=== PATIENT | male | born 1960 | race Caucasian/White ===

== ENCOUNTER 2019-09-21 23:37 | Emergency (ER) | payer OTHER, SELFPAY ==
[2019-09-21 23:42] VITALS: BP 144/98; PULSE 109; RESP 18; O2SAT 97; BMI 21.4
--- NOTE | 2019-09-21 23:51 | XRR_ITS ---
PROCEDURE INFORMATION: Exam: XR Chest, 1 View Exam date and time: 09/22/2019 12:19 AM Age: 58 years old Clinical indication: Shortness of breath; Chest pain; Type not specified; Additional info: Cp TECHNIQUE: Imaging protocol: XR of the chest Views: 1 view. COMPARISON: CR Chest 1 [place] [id number] 04/02/2017 10:20 AM FINDINGS: Lungs: Unremarkable. No consolidation. Pleural space: Unremarkable. No pleural effusion. No pneumothorax. Heart/Mediastinum: Unremarkable. No cardiomegaly. Bones/joints: Unremarkable. XR/XR chest 1V portable [id number] IMPRESSION: Bibasilar atelectasis versus minimal infiltrate.
--- NOTE | 2019-09-21 23:51 | ECG_ITS ---
Measurements Intervals [place] Rate: 140 P: ID: 0 QRS: 50 QRSD: 105 T: 58 QT: 289 QTc: 441 ATRIAL FIBRILLATION WITH RAPID VENTRICULAR RESPONSE NONSPECIFIC ST & T-WAVE ABNORMALITY ABNORMAL RHYTHM ECG Compared to ECG 04/02/2017 13:07:04 T-wave abnormality now present Electronically Signed On 09-22-2019 11:28:43 [employer]ED [employer] SPOT [employer]ER by Leland Ignacio M.D. [id number]
[2019-09-22] VITALS (13 sets, daily range): BP systolic 100–108; BP diastolic 63–81; PULSE 84–114; RESP 15–27; TEMP 36.6; O2SAT 94–97
--- NOTE | 2019-09-22 00:02 | W.ED.CHESTPA ---
HPI - Chest Pain General: Chief Complaint: Chest Pain Stated Complaint: cp Time Seen by Provider: 09/21/19 23:51 History of Present Illness: HPI narrative: Patient woke up with tightness and chest pain after eating supper this evening while sitting in chair. Patient make sure he took his medicine. Pain did not go away and he does have some tightness in the middle of the chest right now. Does have a history of reflux, AGillian burgos MD complaint: chest pain and chest discomfort Onset (ago): hour(s) Timing of current episode: episodic Prior episodes: Yes Onset: during rest and awoke with symptoms Pain location: substernal Pain radiation: none Quality: tightness, aching and heaviness Relieving factors: nothing Exacerbating factors: nothing Associated symptoms: Reports palpitations; Deny abdominal pain, dyspnea, fever(s), nausea or vomiting Review of Systems Narrative: Patient does drink a pot of coffee a day. Usually is good about taking his medications as prescribed. 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 Const: Denies: fever, chills or body aches Eyes: Denies: change in vision or blurry vision ENMT: Denies: throat pain or nasal congestion Card: Reports: chest pain, palpitations and irregular heart rhythm; Denies: shortness of breath on exertion Resp: Denies: shortness of breath, productive cough or non-productive cough GI: Denies: abdominal pain, nausea or vomiting : Denies: difficulty urinating Musc: Denies: extremity pain Skin/Breast: Denies: rash Neuro: Denies: headache Psych: Denies: anxiety or depression Pillo/Lymph: Denies: easy bruising PFSH ED PFSH: Statuses (acute, chronic, etc) shown below reflect problem list status as previously entered and may not be historically accurate Social History Smoking and tobacco status: current every day smoker Physical Exam Const: COMMON NORMALS: no apparent distress, average body habitus and oriented x3 HENMT: COMMON NORMALS: normocephalic HEAD & SCALP: normal to inspection and normocephalic FACE & SINUS: normal facial exam Eye: COMMON NORMALS: conjunctivae normal GENERAL EYE: normal appearance of both eyes CONJUNCTIVA: Yes conjunctivae normal Neck/C-Spine: COMMON NORMALS: no JVD Chest: COMMONS NORMALS: inspection of chest normal Resp: COMMON NORMALS: normal respiratory effort and clear to auscultation bilaterally AUSCULTATION: clear to auscultation bilaterally Cardio: COMMON NORMALS: no JVD, regular rate and regular rhythm RATE: regular rate RHYTHM: regular rhythm GI: COMMON NORMALS: normal to inspection, nondistended, normoactive bowel sounds Extremity: COMMON NORMALS: normal to inspection and full ROM Neuro: COMMON NORMALS: oriented x3 Course Vital Signs: Vital signs: Vital Signs Temperature 97.9 F 09/22/19 00:38 Pulse Rate 87 09/22/19 01:30 Respiratory Rate 19 H 09/22/19 01:30 Blood Pressure 107/68 09/22/19 01:30 Pulse Oximetry 95 09/22/19 01:30 MDM - Chest Pain MDM Narrative: Medical decision making narrative: Dr. Mao and I discussed patient's prognosis medication usage and treatment plan. Lab Data: Labs: Lab Results 09/21/19 09/21/19 09/21/19 Range/Units 00:58 00:58 00:58 WBC 7.0 (4.0-10.0) 10^3/ uL RBC 4.95 (4.1-5.3) 10^6/u L Hgb 14.8 (11.7-16.6) g/dL Hct 43.7 (42.0-52.0) % MCV 88.3 (80-94) fL MCH 29.9 (28.0-34.0) pg MCHC 33.9 (30.0-36.0) g/dL RDW 14.1 (12.1-15.1) % Plt Count 238 (130-400) 10^3/c mm MPV 9.3 (7.4-10.4) fL Neut % (Auto) 50.7 % Lymph % (Auto) 32.7 % [place] % (Auto) 11.5 % Eos % (Auto) 3.9 % Baso % (Auto) 0.9 % Neut # (Auto) 3.5 (1.8-7.7) 10^3/u L Lymph # (Auto) 2.3 (0.8-4.8) 10^3/u L [place] # (Auto) 0.8 (0.2-0.9) 10^3/u L Eos # (Auto) 0.3 (0.0-0.8) 10^3/u L Baso # (Auto) 0.1 (0.0-0.1) 10^3/u L Nucleated RBC % (a uto) 0 % Nucleated RBCs # 0.0 /100WBC PT 12.50 (10.5-13.3) SECO NDS INR 0.91 (0.8-1.2) APTT 28.8 (23.9-36.7) SECO NDS Sodium 136 (136-145) mmol/L Potassium 4.1 (3.5-5.1) mmol/L Chloride 100 (98-107) mmol/L Carbon Dioxide 22 (22-29) mmol/L Anion Gap 18.1 (5-19) BUN 13 (6-20) mg/dL Creatinine 0.7 (0.7-1.2) mg/dL GFR Calculation 115.8 (90-130) mL/min Glucose 113 H (74-109) mg/dL Calcium 9.5 (8.6-10.0) mg/Dl Total Bilirubin 0.2 (0.15-1.2) mg/dL AST 25 (0-40) U/L ALT 31 (0-41) U/L Alkaline Phosphata se 68 (40-130) IU/L Troponin T Baselin e (0-15) ng/mL NT-Pro-B Natriuret Pep 24 (0-125) pg/mL Total Protein 6.6 (6.6-8.7) g/dL Albumin 4.6 (3.5-5.2) g/dL Globulin 2.0 (1.3-4.6) g/dL Lipase 37 (13-60) U/L 09/21/19 Range/Units 00:58 WBC (4.0-10.0) 10^3/ uL RBC (4.1-5.3) 10^6/u L Hgb (11.7-16.6) g/dL Hct (42.0-52.0) % MCV (80-94) fL MCH (28.0-34.0) pg MCHC (30.0-36.0) g/dL RDW (12.1-15.1) % Plt Count (130-400) 10^3/c mm MPV (7.4-10.4) fL Neut % (Auto) % Lymph % (Auto) % [place] % (Auto) % Eos % (Auto) % Baso % (Auto) % Neut # (Auto) (1.8-7.7) 10^3/u L Lymph # (Auto) (0.8-4.8) 10^3/u L [place] # (Auto) (0.2-0.9) 10^3/u L Eos # (Auto) (0.0-0.8) 10^3/u L Baso # (Auto) (0.0-0.1) 10^3/u L Nucleated RBC % (a uto) % Nucleated RBCs # /100WBC PT (10.5-13.3) SECO NDS INR (0.8-1.2) APTT (23.9-36.7) SECO NDS Sodium (136-145) mmol/L Potassium (3.5-5.1) mmol/L Chloride (98-107) mmol/L Carbon Dioxide (22-29) mmol/L Anion Gap (5-19) BUN (6-20) mg/dL Creatinine (0.7-1.2) mg/dL GFR Calculation (90-130) mL/min Glucose (74-109) mg/dL Calcium (8.6-10.0) mg/Dl Total Bilirubin (0.15-1.2) mg/dL AST (0-40) U/L ALT (0-41) U/L Alkaline Phosphata se (40-130) IU/L Troponin T Baselin e 9 (0-15) ng/mL NT-Pro-B Natriuret Pep (0-125) pg/mL Total Protein (6.6-8.7) g/dL Albumin (3.5-5.2) g/dL Globulin (1.3-4.6) g/dL Lipase (13-60) U/L EKG Data^: EKG 1: EKG interpretation date: 09/22/19 EKG interpretation time: 00:01 Interpretation: A. fib with RVR. [address] Yancey. Discharge Plan Discharge Patient Disposition: Home, Self-Care Clinical Impression: Chronic atrial fibrillation Condition: Stable Prescriptions: No Action lovastatin RF: 0 Aspirin Low Dose 81 mg 81 mg PO RF: 0 Discharge Orders: Discharge Order (Routine); Ordered 09/22/19 Ordered By: Troy Ramos Referrals: Ann-Marie Bartlett MD [Family Provider] - Discharge Diet: Usual diet Discharge Activity: Increase activity as tolerated Patient Instructions: Atrial Fibrillation (ED) Activity Restrictions/Additional Instructions: Follow-up with medical provider as directed. Take medications as prescribed. Return to the ER or your medical provider if condition worsens. Please read and understand discharge instructions. If any questions ask please. Cut back on coffee consumption please 2 cups maximum daily. Take rate control medicine when you get home from the ER this morning. Follow-up with Dr. Montoya as soon as possible. Coding Level of Care Code ED Certified Shorthand Reporter for Chg Fwd Exam Problem Focused
[2019-09-22 00:10] LABS: Basophils # 0.1 10^3/uL (0.0-0.1); Basophils % 0.9 %; Eosinophils # 0.3 10^3/uL (0.0-0.8); Eosinophils % 3.9 %; Hematocrit 43.7 % (42.0-52.0); Hemoglobin 14.8 g/dL (11.7-16.6); Lymphocytes # 2.3 10^3/uL (0.8-4.8); Lymphocytes % 32.7 %; Mean Corpuscular HGB Conc 33.9 g/dL (30.0-36.0); Mean Corpuscular Hemoglobin 29.9 pg (28.0-34.0); Mean Corpuscular Volume 88.3 fL (80-94); Mean Platelet Volume 9.3 fL (7.4-10.4); Monocytes # 0.8 10^3/uL (0.2-0.9); Monocytes % 11.5 %; Neutrophils # 3.5 10^3/uL (1.8-7.7); Neutrophils % 50.7 %; Nucleated Red Blood Cells % 0 %; Platelet Count 238 10^3/cmm (130-400); Red Blood Count 4.95 10^6/uL (4.1-5.3); Red Cell Distribution Width 14.1 % (12.1-15.1)
[2019-09-22 00:23] LABS: INR 0.91 (0.8-1.2)
[2019-09-22 00:25] LABS: Partial Thromboplastin Time 28.8 SECONDS (23.9-36.7)
[2019-09-22 00:31] LABS: Troponin(5th) Baseline 9 ng/mL (0-15)
[2019-09-22 00:38] LABS: Alanine Aminotransferase 31 U/L (0-41); Albumin Level 4.6 g/dL (3.5-5.2); Alkaline Phosphatase 68 IU/L (40-130); Anion Gap 18.1 (5-19); Aspartate Amino Transferase 25 U/L (0-40); Blood Urea Nitrogen 13 mg/dL (6-20); Calcium 9.5 mg/Dl (8.6-10.0); Carbon Dioxide 22 mmol/L (22-29); Chloride 100 mmol/L (98-107); Glomerular Filtration Rate 115.8 mL/min (90-130); Glucose 113 mg/dL (74-109); Lipase 37 U/L (13-60); NT Pro B Type Natriuretic Pept 24 pg/mL (0-125); Potassium 4.1 mmol/L (3.5-5.1); Sodium 136 mmol/L (136-145); Total Bilirubin 0.2 mg/dL (0.15-1.2); Total Protein 6.6 g/dL (6.6-8.7)
--- NOTE | 2019-09-22 00:45 | PC.NURSE ---
pt reports waking up with headache then began feeling some pressure in his chest. denies pain. just the pressure only rated 8/10. admits to drinking 4-5 beers this evening but denies other drug use. reports being at +smoker
--- NOTE | 2019-09-22 01:00 | PC.NURSE ---
0100 card drip increased to 10ml/hr then 20mg bolus given at 0105
--- NOTE | 2019-09-22 01:39 | PC.NURSE ---
sitting up on edge of bed refuses to lay back in bed
--- NOTE | 2019-09-22 01:51 | ECG_ITS ---
Measurements Intervals [place] Rate: 140 P: MO: 0 QRS: 50 QRSD: 105 T: 58 QT: 289 QTc: 441 ATRIAL FIBRILLATION WITH RAPID VENTRICULAR RESPONSE NONSPECIFIC ST & T-WAVE ABNORMALITY ABNORMAL RHYTHM ECG Compared to ECG 04/02/2017 13:07:04 T-wave abnormality now present Electronically Signed On 09-22-2019 11:32:36 CURATOR OF COLLECTIONS by Leland Ignacio M.D. [id number] f
--- NOTE | 2019-09-24 11:17 | DCPLANNER ---
receiving manager had message to schedule a follow up appointment for patient with [facility]. receiving manager called [facility], spoke with Perri, a follow up appointment is scheduled for , October 25, 2019 at 10:[address] Montoya. Clinic will call patient with appointment information.
--- NOTE | 2019-11-14 15:55 | DCPLANNER ---
Patient did not attend appointment scheduled for 10.25.19 with [facility].
== END 2019-09-22 02:19 | disposition home or self-care (01) ==
PROVIDERS: Nurse Practitioner Family; Emergency Provider Emergency Medicine; Family Provider Family Medicine
DX: I48.20 Chronic atrial fibrillation, unspecified (principal); Z79.82 Long term (current) use of aspirin; F17.210 Nicotine dependence, cigarettes, uncomplicated
CPT/HCPCS: 71045; 80053; 83690; 83880; 84484; 85025; 85610; 85730; 93005; 96365; 96374; 99282; A9270; J3490

== ENCOUNTER 2019-11-03 22:54 | Emergency (ER) | payer OTHER, SELFPAY ==
[2019-11-03 23:20] VITALS: BP 133/99; PULSE 70; RESP 22; TEMP 36.4; O2SAT 98; BMI 31.0
--- NOTE | 2019-11-03 23:43 | ED_ITS ---
Entered by Rosie Robles, acting as scribe for Drew Slater DO Nov 03, 2019 22:54 HPI - Wound/Laceration General: Chief Complaint: Wound/Laceration Stated Complaint: fall Time Seen by Provider: 11/03/19 23:42 Source: patient and family Mode of arrival: ambulatory Limitations: no limitations History of Present Illness: HPI narrative: 58 yo male presents with laceration to L eye brow post fall in his shop at home. pt states he was walking tripped and fell causing laceration and abrasion to nose. pt denies any other symptoms at this time. pt smells of alcohol. 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) Location: face (L eye brow) and other (neck) Place: home Context: fall (hit face) Associated symptoms: Reports no associated symptoms; Denies chills, fever(s), nausea or vomiting Review of Systems General: Reports: 10 or more systems reviewed and unremarkable except in HPI and below Const: Denies: fever or chills Eyes: Denies: change in vision or blurry vision ENMT: Denies: painful swallowing, swelling of lips/tongue, dental pain, Change in hearing, nose bleeds, post nasal drip or facial/sinus pain Card: Denies: chest pain, palpitations, irregular heart rhythm, edema, swelling of feet/ankles, shortness of breath on exertion or shortness of breath when lying down Resp: Denies: shortness of breath, productive cough, non-productive cough or wheezing GI: Denies: abdominal pain, nausea, vomiting, blood in stool or black tarry stool : Denies: difficulty urinating, urinary urgency or blood in urine Musc: Denies: neck pain, back pain, redness or joint warmth Skin/Breast: Reports: other (laceration to L eye brow and nose) Neuro: Denies: headache, dizziness or vertigo Psych: Denies: anxiety PFSH ED PFSH: Social History Smoking and tobacco status: current every day smoker Physical Exam Const: GENERAL APPEARANCE: well developed ORIENTATION/CONSCIOUSNESS: Yes oriented to person, Yes oriented to place and Yes oriented to time HENMT: COMMON NORMALS: external ears normal and external nose normal FACE & SINUS: normal facial exam NOSE: external nose normal EXTERNAL EAR: Yes external ears normal MOUTH: tongue normal THROAT: posterior oropharynx normal; no peritonsillar mass Eye: COMMON NORMALS: PERRL, EOMs intact bilaterally and conjunctivae normal EYELID: eyelids normal CONJUNCTIVA: Yes conjunctivae normal PUPIL: Yes PERRL Neck/C-Spine: COMMON NORMALS: full ROM GENERAL: No tracheal deviation CERVICAL SPINE: Yes normal cervical lordosis and No cervical spine tenderness Chest: COMMONS NORMALS: inspection of chest normal CHEST: No tenderness Resp: COMMON NORMALS: clear to auscultation bilaterally EFFORT & INSPECTION: No tachypneic, No respiratory distress, No retractions, No uses accessory muscles and No tracheal deviation AUSCULTATION: clear to auscultation bilaterally, no rhonchi, no wheezes and lung sounds not diminished Cardio: COMMON NORMALS: regular rate and regular rhythm RATE: regular rate RHYTHM: regular rhythm HEART SOUNDS: no murmurs PERIPHERAL PULSES: radial pulses present GI: INSPECTION: No abdominal distension AUSCULTATION: No hyperactive bowel sounds and No hypoactive bowel sounds PALPATION: No guarding and No rigid PERCUSSION: no dullness to percussion and no tympanic to percussion : COMMON NORMALS: Yes no CVA tenderness BLADDER/KIDNEY EXAM: Yes no CVA tenderness Back/Pelvis: COMMON NORMALS: no CVA tenderness Neuro: SENSORIUM/ORIENTATION: Yes oriented to person, Yes oriented to place and Yes oriented to time Psych: COMMON NORMALS: mental status grossly normal Skin: WOUNDS: Yes wounds noted (L eye brow laceration, small abrasion on bridge of nose. ) WOUNDS: Yes wounds noted (L eye brow laceration, small abrasion on bridge of nose. ) Procedures Laceration Laceration 1: Side (If applicable): left Size (cm): 3.5 Description: stellate Depth: simple, single layer Local Anesthetic: lidocaine 1% Pre-repair: wound explored, irrigated extensively and deep structures intact Skin layer closed with: nylon Size (cm): 3-0 Number of sutures: 10 Technique: simple, interrupted Size: 4-0 Course Vital Signs: Vital signs: Vital Signs Temperature 97.5 F L 11/03/19 23:20 Pulse Rate 70 11/03/19 23:20 Respiratory Rate 22 H 11/03/19 23:20 Blood Pressure 133/99 11/03/19 23:20 Pulse Oximetry 98 02/29/20 23:20 MDM - Wound/Laceration MDM Narrative: Medical decision making narrative: 58-year-old male, who fell in his shop. He sustained a laceration around his left eyebrow. He is also intoxicated, and therefore cannot be cleared. CT is negative for head and cervical spine. Laceration is repaired by EMELYN Medina. Discharge Plan Discharge Patient Disposition: Home, Self-Care Clinical Impression: Laceration Concussion Qualifiers: Encounter type: initial encounter Loss of consciousness presence/duration: without LOC Qualified Code(s): S06.0X0A - Concussion without loss of consciousness, initial encounter Condition: Stable Prescriptions: No Action famotidine 20 mg tablet 20 mg PO DAILY RF: 0 lisinopril 20 mg tablet 20 mg PO DAILY RF: 0 flecainide 100 mg tablet 100 mg PO Q12H RF: 0 diltiazem HCl 30 mg tablet 30 mg PO TID RF: 0 lovastatin 20 mg tablet 40 mg PO DAILY RF: 0 doxycycline hyclate 100 mg capsule 100 mg PO BID 7 Days Qty: 14 RF: 0 lovastatin RF: 0 Aspirin Low Dose 81 mg 81 mg PO RF: 0 Discharge Orders: Discharge Order (Routine); Ordered 11/04/19 Ordered By: Drew Slater Referrals: Ann-Marie Bartlett MD [Family Provider] - Discharge Diet: Usual diet Discharge Activity: Increase activity as tolerated Patient Instructions: Suture Care (ED), Laceration (ED), Concussion (ED) Activity Restrictions/Additional Instructions: Keep wound clean and dry for 24 hours, then may wash with soap and running water. Do not soak. Sutures out in 5 to 10 days. Return for worsening mental status, vomiting, other concerning symptoms. Discharge Date/Time: 11/04/19 01:27 Coding Level of Care Code ED Chemical Pathologist for Chg Fwd Exam Comprehensive The documentation recorded by the Travis dumont Bridget Annette, accurately reflects the service I personally performed and the decisions made by Bryon thakkar Jeremy John, DO Nov 03, 2019 22:54
--- NOTE | 2019-11-03 23:49 | CTR_ITS ---
PROCEDURE INFORMATION: Exam: CT Head Without Contrast Exam date and time: 11/03/2019 12:00 AM Age: 58 years old Clinical indication: Injury or trauma; Fall; Initial encounter; Blunt trauma (contusions or hematomas) and laceration; Consciousness not specified; Without residual foreign body; Patient HX: Fell out of chair onto concrete - lac L eyebrow TECHNIQUE: Imaging protocol: Computed tomography of the head without contrast. Total DLP: 891.28 mGy-cm Radiation optimization: All CT scans at this facility use at least one of these dose optimization techniques: automated exposure control; mA and/or kV adjustment per patient size (includes targeted exams where dose is matched to clinical indication); or iterative reconstruction. COMPARISON: No relevant prior studies available. FINDINGS: Brain: No acute intracranial hemorrhage or mass effect. No definite acute infarct by CT. Ventricles: Ventricle size is normal for age. Bones/joints: No definite acute skull fracture. Sinuses: Included paranasal sinuses are essentially clear. Mastoid air cells: No significant acute finding. Soft tissues: Evidence for soft tissue injury/scalp hematoma/laceration in the left supraorbital region. CT/CT head wo con* [id number] IMPRESSION: 1. No acute intracranial hemorrhage or mass effect. 2. Other findings discussed above. Radiation Dose CTDIVOL = (mGy): DLP = 891.28 (mGy-cm)
--- NOTE | 2019-11-03 23:49 | CTR_ITS ---
PROCEDURE INFORMATION: Exam: CT Cervical Spine Without Contrast Exam date and time: 11/03/2019 12:00 AM Age: 58 years old Clinical indication: Injury or trauma; Fall; Initial encounter; Blunt trauma; Prior surgery; Surgery date: 6+ months; Surgery type: Fusion; Patient HX: Fell our of a chair onto concrete TECHNIQUE: Imaging protocol: Computed tomography images of the cervical spine without contrast. Total DLP: 630.69 mGy-cm Radiation optimization: All CT scans at this facility use at least one of these dose optimization techniques: automated exposure control; mA and/or kV adjustment per patient size (includes targeted exams where dose is matched to clinical indication); or iterative reconstruction. COMPARISON: CT Cervical Spine wo* [id number] 05/13/2018 4:14 PM FINDINGS: Vertebrae: Prior anterior surgical fusion from C3 through C6. On axial CT images, no definite acute fracture is visible. Sagittal and coronal reconstructions show no fracture or post traumatic subluxation. Moderate to severe degenerative disc changes and facet joint arthritis at several levels. Discs/Spinal canal/Neural foramina: No definite/significant disc herniation by CT, MRI could be more sensitive if clinically indicated. Lungs: No significant acute abnormality in the upper lungs. CT/CT cervical spin wo con* [id number] IMPRESSION: 1. No definite acute fracture or post traumatic subluxation by CT. 2. Other findings discussed above. Radiation Dose CTDIVOL = (mGy): DLP = 630.69 (mGy-cm)
--- NOTE | 2019-11-04 01:27 | PC.NURSE ---
Patient dc'd home in stable condition in care of family via ambulation refusing wheelchair. Discharge papers given and explained to patient with all questions asked and answered.
== END 2019-11-04 01:27 | disposition home or self-care (01) ==
PROVIDERS: Emergency Provider Emergency Medicine; Family Provider Family Medicine
DX: S01.112A Laceration without foreign body of left eyelid and periocular area, initial encounter (principal); S00.31XA Abrasion of nose, initial encounter; S06.0X0A Concussion without loss of consciousness, initial encounter; F10.129 Alcohol abuse with intoxication, unspecified; F17.200 Nicotine dependence, unspecified, uncomplicated; W01.0XXA Fall on same level from slipping, tripping and stumbling without subsequent striking against object, initial encounter; Y92.008 Other place in unspecified non-institutional (private) residence as the place of occurrence of the external cause
CPT/HCPCS: 12013; 70450; 72125; 99281; 99283

== ENCOUNTER → 2020-03-26 08:11 | Outpatient (BNVA) | payer OTHER, SELFPAY | PROVIDERS: Family Provider Family Medicine; Visit Provider Internal Medicine Cardiovascular Disease | DX: E78.2 Mixed hyperlipidemia (principal); I48.0 Paroxysmal atrial fibrillation; I10 Essential (primary) hypertension; F17.200 Nicotine dependence, unspecified, uncomplicated | CPT/HCPCS: 80061 ==

== ENCOUNTER 2020-04-24 10:52 | Outpatient (CLI) | payer OTHER, SELFPAY ==
--- NOTE | 2020-04-24 11:11 | XR_ITS ---
WS: [id number] EXAM: Chest: PA and lateral DATE OF EXAMINATION: 04/24/2020, 1121 hours COMPARISON: Chest x-ray from 09/22/2019 HISTORY: Patient is 59 years old with known COPD. Complaining of shortness of breath. FINDINGS: The heart size is normal. The mediastinal contours are normal. Pulmonary vascularity is within norm al limits. Chronic lung changes are seen. Slight coarse interstitial markings appears similar. No are a of consolidation. The very inferior aspect of the left costophrenic angle excluded from the image. No effusion, or pneumothorax. Multiple old left rib fractures noted. Old postop fusion changes lower cervical spine.
--- NOTE | 2020-04-24 17:17 | XR_ITS ---
WS: [id number] EXAM: Chest: PA and lateral DATE OF EXAMINATION: 04/24/2020, 1121 hours COMPARISON: Chest x-ray from 09/22/2019 HISTORY: Patient is 59 years old with known COPD. Complaining of shortness of breath. FINDINGS: The heart size is normal. The mediastinal contours are normal. Pulmonary vascularity is within norm al limits. Chronic lung changes are seen. Slight coarse interstitial markings appears similar. No are a of consolidation. The very inferior aspect of the left costophrenic angle excluded from the image. No effusion, or pneumothorax. Multiple old left rib fractures noted. Old postop fusion changes lower cervical spine. XR/XR chest 2V* [id number] IMPRESSION: Slight chronic lung changes. NO ACUTE PULMONARY DISEASE.
== END 2020-04-24 10:53 | disposition home or self-care (01) ==
LOC: RADWPI 10:57
PROVIDERS: Family Provider Family Medicine; PCP Family Medicine; Visit Provider Family Medicine
DX: J44.9 Chronic obstructive pulmonary disease, unspecified (principal)
CPT/HCPCS: 71046

== ENCOUNTER 2020-11-03 07:19 | Emergency (ER) | payer OTHER, SELFPAY ==
[2020-11-03 07:30] VITALS: BP 151/85; PULSE 86; RESP 18; TEMP 36.5; O2SAT 99; BMI 35.7
--- NOTE | 2020-11-03 07:36 | W.ED.ARRPALP ---
HPI - Arrhythmia/Palpitations General: Chief Complaint: Arrhythmia/Palpitations Stated Complaint: Arrhythmia Time Seen by Provider: 11/03/20 07:23 History of Present Illness: HPI narrative: 59-year-old male presents emergency room with complaint of tachycardia. He has been monitoring at home says he has been getting his heart rates in the 120s. On arrival here his heart rate is well controlled in the 70s. He has a prescription for flecainide and has previously been diagnosed with chronic atrial fibrillation. He is on aspirin daily without any further anticoagulations. Takes flecainide 100 mg twice daily and diltiazem 90 mg once daily. 2 days ago while at rest he noticed that his heart seemed to be racing he checked it on the monitor is at home heart rates in the 120s at high 140s. It resolved and has been intermittent since. Patient does still continue to smoke he did not have any associated chest discomfort at times it is racing. He is not having any chest pain now. He is not missed or run out of any of his medications he has had no recent medication changes. MD complaint: heart racing , skipped beats and palpitations Onset (ago): day(s) Duration: intermittent Severity: mild Context: occurred during rest Arrhythmia history: atrial fibrillation Associated symptoms: Reports anxiety; Deny cough, diaphoresis, muscle cramps, nausea, paresthesias, pre-syncope, sense of impending doom, short of breath, syncope or vomiting Treatments prior to arrival: calcium channel kevin and other (Flecainide) Review of Systems Const: Denies: diaphoresis ENMT: Denies: throat pain, ear or mastoid pain, nasal discharge or nasal congestion Card: Denies: syncope or pre-syncope Resp: Denies: dyspnea, productive cough or non-productive cough GI: Denies: nausea or vomiting : Denies: flank pain, dysuria, urinary frequency or urinary urgency Musc: Denies: muscle cramps Skin/Breast: Denies: rash or pruritus Psych: Reports: anxiety PFSH ED PFSH: Medical History Atrial fibrillation COPD (chronic obstructive pulmonary disease) GERD (gastroesophageal reflux disease) Hyperlipidemia Hypertension Lower respiratory infection Smoking Family History Other Hypertension Myocardial infarction Stroke Social History (Reviewed 11/03/20 @ 07:47 by MARY Mishra Smoking and tobacco status: current every day smoker Physical Exam Const: COMMON NORMALS: no acute distress GENERAL APPEARANCE: cooperative and comfortable ORIENTATION/CONSCIOUSNESS: Yes awake, Yes oriented to person, Yes oriented to place and Yes oriented to time HENMT: COMMON NORMALS: normocephalic, atraumatic and hearing grossly normal bilaterally HEAD & SCALP: normocephalic and atraumatic Neck/C-Spine: COMMON NORMALS: no JVD Lymph: LYMPHATIC: no lymphadenopathy noted and no lymphedema noted Resp: COMMON NORMALS: normal respiratory effort, No retractions, No use of accessory muscles and clear to auscultation bilaterally AUSCULTATION: clear to auscultation bilaterally Cardio: COMMON NORMALS: no JVD, regular rate, regular rhythm and No murmurs present (Cardio) RATE: regular rate RHYTHM: regular rhythm GI: COMMON NORMALS: Soft to palpation and No hepatosplenomegaly present AUSCULTATION: Yes normoactive bowel sounds PALPATION: Yes Soft to palpation, No Tenderness to palpation present (GI), No Guarding due to palpation present (GI) and Yes No hepatosplenomegaly present Extremity: COMMON NORMALS: normal to inspection, capillary refill normal, no clubbing, cyanosis or edema, no calf tenderness and no pedal edema Neuro: SENSORIUM/ORIENTATION: Yes oriented to person, Yes oriented to place and Yes oriented to time Skin: COMMON NORMALS: no rashes or lesions noted GENERAL SKIN EXAM: no rashes or lesions noted Course Vital Signs: Vital signs: Vital Signs Temperature 97.7 F 11/03/20 07:37 Pulse Rate 77 11/03/20 10:02 Respiratory Rate 12 11/03/20 10:02 Blood Pressure 117/81 11/03/20 10:02 Pulse Oximetry 99 11/03/20 10:02 MDM - Arrhythmia/Palpitations MDM Narrative: Medical decision making narrative: Remained in a sinus rhythm the entire time he was here. We will go ahead and discharge him home get a Holter monitor and then follow-up with Dr. Montoya worsening or change symptoms return. Continue take all of his other previous medications as prescribed. Lab Data: Labs: Lab Results 11/03/20 11/03/20 11/03/20 Range/Units 08:02 08:02 08:02 WBC 6.0 (4.0-10.0) 10^3/ uL RBC 5.24 (4.1-5.3) 10^6/u L Hgb 15.9 (11.7-16.6) g/dL Hct 47.4 (42.0-52.0) % MCV 90.5 (80-94) fL MCH 30.3 (28.0-34.0) pg MCHC 33.5 (30.0-36.0) g/dL RDW 14.3 (12.1-15.1) % Plt Count 270 (130-400) 10^3/c mm MPV 9.3 (7.4-10.4) fL Neut % (Auto) 58.2 % Lymph % (Auto) 21.9 % [place] % (Auto) 15.6 % Eos % (Auto) 2.8 % Baso % (Auto) 0.8 % Neut # (Auto) 3.51 (1.8-7.7) 10^3/u L Lymph # (Auto) 1.3 (0.8-4.8) 10^3/u L [place] # (Auto) 0.9 (0.2-0.9) 10^3/u L Eos # (Auto) 0.2 (0.0-0.8) 10^3/u L Baso # (Auto) 0.1 (0.0-0.1) 10^3/u L Nucleated RBC % (a uto) 0 % Nucleated RBCs # 0.0 /100WBC Sodium 136 (136-145) mmol/L Potassium 4.4 (3.5-5.1) mmol/L Chloride 103 (98-107) mmol/L Carbon Dioxide 25 (22-29) mmol/L Anion Gap 12.4 (5-19) BUN 8 (6-20) mg/dL Creatinine 0.6 L (0.7-1.2) mg/dL GFR Calculation 137.9 H (90-130) mL/min Glucose 106 (65-115) mg/dL Calculated Osmolal ity 281 L (285-295) mOsm/k g Calcium 8.9 (8.5-10.5) mg/dL Total Bilirubin 0.4 (0.15-1.2) mg/dL AST 19 (0-40) U/L ALT 27 (0-41) U/L Alkaline Phosphata se 67 (40-130) IU/L Creatine Kinase 59 (39-308) U/L Troponin T Baselin e 9 (0-15) ng/L Troponin T 120 Min [place] (0-15) ng/L Delta Troponin T (0-10) ABS# Total Protein 6.3 L (6.6-8.7) g/dL Albumin 4.1 (3.5-5.2) g/dL Globulin 2.2 (1.3-4.6) g/dL Urine Color (Yellow) Urine Appearance (CLEAR) Urine pH (5-7) Ur Specific Gravit y (1.005-1.030) Urine Protein (Negative) Urine Glucose (UA) (Normal) Urine Ketones (Negative) Urine Blood (Negative) Urine Nitrate (Negative) Urine Bilirubin (Negative) Prot Sulfosalicyli c Acd (Negative) Urine Urobilinogen (Negative) mg/dL Ur Leukocyte Merary ase (Negative) 11/03/20 11/03/20 Range/Units 08:20 10:05 WBC (4.0-10.0) 10^3/ uL RBC (4.1-5.3) 10^6/u L Hgb (11.7-16.6) g/dL Hct (42.0-52.0) % MCV (80-94) fL MCH (28.0-34.0) pg MCHC (30.0-36.0) g/dL RDW (12.1-15.1) % Plt Count (130-400) 10^3/c mm MPV (7.4-10.4) fL Neut % (Auto) % Lymph % (Auto) % [place] % (Auto) % Eos % (Auto) % Baso % (Auto) % Neut # (Auto) (1.8-7.7) 10^3/u L Lymph # (Auto) (0.8-4.8) 10^3/u L [place] # (Auto) (0.2-0.9) 10^3/u L Eos # (Auto) (0.0-0.8) 10^3/u L Baso # (Auto) (0.0-0.1) 10^3/u L Nucleated RBC % (a uto) % Nucleated RBCs # /100WBC Sodium (136-145) mmol/L Potassium (3.5-5.1) mmol/L Chloride (98-107) mmol/L Carbon Dioxide (22-29) mmol/L Anion Gap (5-19) BUN (6-20) mg/dL Creatinine (0.7-1.2) mg/dL GFR Calculation (90-130) mL/min Glucose (65-115) mg/dL Calculated Osmolal ity (285-295) mOsm/k g Calcium (8.5-10.5) mg/dL Total Bilirubin (0.15-1.2) mg/dL AST (0-40) U/L ALT (0-41) U/L Alkaline Phosphata se (40-130) IU/L Creatine Kinase (39-308) U/L Troponin T Baselin e (0-15) ng/L Troponin T 120 Min [place] 7.51 (0-15) ng/L Delta Troponin T -1.49 L (0-10) ABS# Total Protein (6.6-8.7) g/dL Albumin (3.5-5.2) g/dL Globulin (1.3-4.6) g/dL Urine Color Yellow (Yellow) Urine Appearance Clear (CLEAR) Urine pH 7 (5-7) Ur Specific Gravit y 1.005 (1.005-1.030) Urine Protein Neg (Negative) Urine Glucose (UA) Norm (Normal) Urine Ketones Negative (Negative) Urine Blood Neg (Negative) Urine Nitrate Negative (Negative) Urine Bilirubin Neg (Negative) Prot Sulfosalicyli c Acd Negative (Negative) Urine Urobilinogen Norm (Negative) mg/dL Ur Leukocyte [place] ase Negative (Negative) Discharge Plan Discharge Patient Disposition: Home Clinical Impression: Atrial fibrillation Condition: Stable Prescriptions: No Action flecainide 100 mg tablet 100 mg PO Q12H RF: 0 garlic PO RF: 0 lidocaine HCl [Xylocaine] 10 mg/mL (1 %) solution 1 ml IM ONCE Qty: 1 RF: 0 prednisone 20 mg tablet 20 mg PO .in a.m. 5 Days Qty: 10 RF: 0 methylprednisolone acetate 80 mg/mL suspension 80 mg IM ONCE Qty: 1 RF: 0 fluticasone propion-salmeterol [Advair Diskus] 250-50 mcg/dose blister with device 1 inh INHALATION BID Qty: 60 RF: 2 famotidine 20 mg tablet 20 mg PO DAILY Qty: 90 RF: 2 lovastatin 40 mg tablet 40 mg PO DAILY Qty: 90 RF: 3 lisinopril 40 mg tablet 40 mg PO DAILY 30 Days Qty: 90 RF: 1 diltiazem HCl 120 mg capsule,extended release 24hr 120 mg PO DAILY Qty: 30 RF: 5 Aspirin Low Dose 81 mg 81 mg PO RF: 0 Discharge Orders: Discharge ED (Routine); Ordered 11/03/20 Ordered By: Tomás Rick Referrals: Ann-Marie Bartlett MD [Family Provider] - Brandyn Bartlett MD [Primary Care Provider] - Discharge Diet: Usual diet Discharge Activity: Resume usual activity Patient Instructions: Opioid Safety Activity Restrictions/Additional Instructions: Case management will call to arrange for 24-hour Holter monitor. When that is completed follow-up with your micromatic hone operator. Continue to take previously prescribed medications. Coding Level of Care Code ED Appointment Setter for Joseg Fwd Exam Comprehensive
[2020-11-03 07:37] VITALS: BP 151/85; PULSE 77; RESP 17; TEMP 36.5; O2SAT 99
--- NOTE | 2020-11-03 07:42 | ECG_ITS ---
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 Measurements Intervals [place] Rate: 78 P: 63 [place]: 160 QRS: 31 QRSD: 117 T: 43 QT: 350 QTc: 399 Interpretive Statements SINUS RHYTHM POSSIBLE LEFT ATRIAL ENLARGEMENT [-0.1mV P WAVE IN V1/V2] MODERATE INTRAVENTRICULAR CONDUCTION DELAY [110+ ms QRS DURATION] Compared to ECG 09/21/2019 23:52:06 Intraventricular conduction delay now present Atrial fibrillation no longer present T-wave abnormality no longer present Electronically Signed On 11-03-2020 18:53:38 TRANSACTION MANAGER by Justino Monet M.D. [id number] f
--- NOTE | 2020-11-03 07:42 | XR_ITS ---
WS: [id number] PORTABLE CHEST HISTORY: dyspnea/cough COMPARISON: 04/24/2020 Nodule at the RIGHT lung base is probably a nipple shadow. Similar to the prior study. No pneumonia o r acute findings. No pleural effusion or pneumothorax. Cardiac size: Normal. Mediastinum/Aorta: Mild atherosclerosis aorta. Anterior cervical fusion. Prior healed rib fractures involving fourth, fifth and sixth ribs on the LE FT. XR/XR chest 1V portable [id number] IMPRESSION: Stable chest. No acute cardiopulmonary disease.
[2020-11-03 08:22] VITALS: BP 119/70; PULSE 71; RESP 20; O2SAT 98
[2020-11-03 08:26] LABS: Basophils # 0.1 10^3/uL (0.0-0.1); Basophils % 0.8 %; Eosinophils # 0.2 10^3/uL (0.0-0.8); Eosinophils % 2.8 %; Hematocrit 47.4 % (42.0-52.0); Hemoglobin 15.9 g/dL (11.7-16.6); Lymphocytes # 1.3 10^3/uL (0.8-4.8); Lymphocytes % 21.9 %; Mean Corpuscular HGB Conc 33.5 g/dL (30.0-36.0); Mean Corpuscular Hemoglobin 30.3 pg (28.0-34.0); Mean Corpuscular Volume 90.5 fL (80-94); Mean Platelet Volume 9.3 fL (7.4-10.4); Monocytes # 0.9 10^3/uL (0.2-0.9); Monocytes % 15.6 %; Neutrophils # 3.51 10^3/uL (1.8-7.7); Neutrophils % 58.2 %; Nucleated Red Blood Cells % 0 %; Platelet Count 270 10^3/cmm (130-400); Red Blood Count 5.24 10^6/uL (4.1-5.3); Red Cell Distribution Width 14.3 % (12.1-15.1)
[2020-11-03 08:36] LABS: Add Urine Microscopic? NO
[2020-11-03 08:48] LABS: Alanine Aminotransferase 27 U/L (0-41); Albumin Level 4.1 g/dL (3.5-5.2); Alkaline Phosphatase 67 IU/L (40-130); Anion Gap 12.4 (5-19); Aspartate Amino Transferase 19 U/L (0-40); Blood Urea Nitrogen 8 mg/dL (6-20); Calcium 8.9 mg/dL (8.5-10.5); Carbon Dioxide 25 mmol/L (22-29); Chloride 103 mmol/L (98-107); Creatine Phosphokinase 59 U/L (39-308); Globulin 2.2 g/dL (1.3-4.6); Glomerular Filtration Rate 137.9 mL/min (90-130); Glucose 106 mg/dL (65-115); Osmolality Calculated 281 mOsm/kg (285-295); Potassium 4.4 mmol/L (3.5-5.1); Sodium 136 mmol/L (136-145); Total Bilirubin 0.4 mg/dL (0.15-1.2); Total Protein 6.3 g/dL (6.6-8.7)
[2020-11-03 08:49] LABS: Troponin(5th) Baseline 9 ng/L (0-15)
[2020-11-03 09:01] LABS: Glucose Urine UA Norm (Normal); Protein Urine Neg (Negative); Specific Gravity, Urine 1.005 (1.005-1.030); Urine Appearance Clear (CLEAR); Urine Color Yellow (Yellow); pH Urine 7 (5-7)
[2020-11-03 09:02] LABS: Bilirubin Urine Neg (Negative); Blood Urine Neg (Negative); Ketones Urine Negative (Negative); Leukocyte Esterase Urine Negative (Negative); Nitrate Urine Negative (Negative); Sulfosalicylic Acid Urine Negative (Negative); Urobilinogen Urine Norm (Negative)
[2020-11-03 09:23] VITALS: BP 121/79; PULSE 73; RESP 20; O2SAT 98
--- NOTE | 2020-11-03 09:42 | ECG_ITS ---
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 Measurements Intervals [place] Rate: 69 P: 40 [place]: 169 QRS: 26 QRSD: 102 T: 53 QT: 377 QTc: 404 Interpretive Statements SINUS RHYTHM POSSIBLE LEFT ATRIAL ENLARGEMENT [-0.1mV P WAVE IN V1/V2] Compared to ECG 11/03/2020 07:31:02 Intraventricular conduction delay no longer present Electronically Signed On 11-03-2020 19:00:34 STITCHING MACHINE FEEDER OR OFFBEARER by Justino Monet M.D. [id number]
[2020-11-03 10:02] VITALS: BP 117/81; PULSE 77; RESP 12; O2SAT 99
[2020-11-03 10:35] LABS: Troponin 5 2HR 7.51 ng/L (0-15)
[2020-11-03 10:40] LABS: Troponin 5 2HR Delta -1.49 ABS# (0-10)
[2020-11-03 10:55] VITALS: BP 115/98; PULSE 78; RESP 22; O2SAT 98
--- NOTE | 2020-11-03 15:18 | DCPLANNER ---
feed manager was asked to schedule a follow up appointment for patient with heart care for a halter monitor. feed manager faxed order to heart care, will call for appointment information.
--- NOTE | 2020-11-05 13:22 | DCPLANNER ---
Patient has a follow up appointment scheduled for Wednesday, November 11, 2020 at 11:00 with [facility] for a 24 hour halter monitor. Clinic will call patient with appointment information.
--- NOTE | 2020-11-21 08:08 | DCPLANNER ---
Patient had a follow up appointment scheduled for 11.11.20 with [facility] for a h 24 hour monitor - patient did not attend appointment.
== END 2020-11-03 10:56 | disposition home or self-care (01) ==
PROVIDERS: Emergency Provider Family Medicine; Family Provider Family Medicine; PCP Family Medicine Sports Medicine
DX: I48.91 Unspecified atrial fibrillation (principal); Z79.82 Long term (current) use of aspirin; J44.9 Chronic obstructive pulmonary disease, unspecified; E78.5 Hyperlipidemia, unspecified; I10 Essential (primary) hypertension; F17.210 Nicotine dependence, cigarettes, uncomplicated
CPT/HCPCS: 36415; 71045; 80053; 81003; 82550; 84484; 85025; 93005; 99283

== ENCOUNTER 2021-04-28 18:22 | Emergency (ER) | payer OTHER, SELFPAY ==
--- NOTE | 2021-04-28 18:39 | XRR_ITS ---
PROCEDURE INFORMATION: Exam: XR Chest Exam date and time: 04/28/2021 6:39 PM Age: 60 years old Clinical indication: Sternal or substernal pain; Patient HX: Sternal chest pain w/ SOB; Additional info: Cp TECHNIQUE: Imaging protocol: XR of the chest. Views: 1 view. COMPARISON: CR XR chest 1V portable [id number] 11/03/2020 7:45 AM FINDINGS: Lungs: Unremarkable. No consolidation. Pleural spaces: Unremarkable. No pleural effusion. No pneumothorax. Heart/Mediastinum: Unremarkable. No cardiomegaly. Bones/joints: Unremarkable. XR/XR chest 1V portable [id number] IMPRESSION: Negative for infiltrate
--- NOTE | 2021-04-28 18:39 | ECG_ITS ---
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 Measurements Intervals [place] Rate: 96 P: 42 [place]: 135 QRS: 70 QRSD: 100 T: 84 QT: 333 QTc: 421 Interpretive Statements SINUS RHYTHM Compared to ECG 04/28/2021 21:20:02 No significant changes Electronically Signed On 05-22-2021 18:59:43 CDT by Linette Ochoa M.D. [id number] f
[2021-04-28 18:49] VITALS: BP 135/81; PULSE 71; RESP 20; TEMP 36.9; O2SAT 94
--- NOTE | 2021-04-28 20:35 | W.ED.CHESTPA ---
HPI - Chest Pain General: Chief Complaint: Chest Pain Stated Complaint: CHEST PAIN/SOB Time Seen by Provider: 04/28/21 20:35 History of Present Illness: HPI narrative: Mr. Reddy is a 60-year-old gentleman with significant past medical history of CAD, COPD, hypertension, hyperlipidemia, who presents to the emergency department due to chest pain and generalized malaise. He got his second Covid vaccine on Tuesday and started developing fatigue and diarrhea shortly thereafter. Diarrhea is nonbloody. Starting on Tuesday he has pressure across his chest that starts in the right side. He has associated mild shortness of breath. He also has headache. Overall the course of symptoms has persisted. He has tried home medications without significant relief. He denies frequent episodes in the past. No other difficult cardiac chest pain components associated with this. Review of Systems General: Reports: 10 or more systems reviewed and unremarkable except in HPI and below Narrative: CONSTITUTIONAL: see hpi EYES - denies pain, denies loss of vision EARS - denies ear issues. NOSE - denies congestion or rhinorrhea. THROAT - denies sore throat or difficulty swallowing. CARDIOVASCULAR - see hpi RESPIRATORY - see hpi GASTROINTESTINAL - denies abdominal pain, see hpi GENITOURINARY - denies dysuria or urinary frequency MUSCULOSKELETAL- denies deformity or pain SKIN - denies rashes or new changed skin lesions NEUROLOGIC - denies focal weakness or sensory changes. see hpi HEMATOLOGIC/LYMPHATIC - denies easy bruising or lymphadenopathy. PFSH ED PFSH: Medical History Atrial fibrillation COPD (chronic obstructive pulmonary disease) GERD (gastroesophageal reflux disease) Hyperlipidemia Hypertension Lower respiratory infection Smoking Family History Other Hypertension Myocardial infarction Stroke Social History Smoking and tobacco status: current every day smoker Physical Exam Narrative: EXAM NARRATIVE: GENERAL/CONSTITUTIONAL -mildly ill-appearing. No acute distress. Eyes - PERRL, no conjunctival injection ENMT - Atraumatic external nose and ears. Moist mucous membranes NECK - supple. trachea midline CARDIOVASCULAR - regular rate and rhythm. Peripheral pulses 2+ and equal RESPIRATORY -clear to auscultation bilaterally. No retractions or accessory muscle use. ABDOMEN/GI - Nontender/Nondistended. No tenderness to percussion or evidence of peritonitis MSK - Extremities without obvious deformity or tenderness to palpation SKIN - Warm, Dry NEURO - alert and appropriately oriented. strength and sensation intact. Moves all extremities equally. PSYCH - Appropriate mood and affect Course ED course: - Patient was seen and evaluated by me at bedside - Patient placed on cardiac monitors, IV access obtained - Initial evaluation notable for mildly ill appearance, no acute distress - Labs and imaging obtained and reviewed - Labs notable for no significant abnormality explaining patient's symptoms. Negative troponin. - Imaging notable for no acute hemorrhage explain symptoms. - Upon serial reexamination after treatment the patient was improved - Based on patient history, evaluation, labs, and imaging as interpreted the most likely cause of the patient's condition is unclear related to primary chest pain or COVID-19 vaccine side effects - The results of ED evaluation were discussed with the patient including prescriptions and/or symptomatic cares (if applicable) including appropriate and responsible use, followup plan, and return precautions. I explained the methodology and risk stratification of heart score including risk of major adverse cardiac events. I also explained her challenges regarding hospital bed availability in the context of COVID-19. The patient is comfortable following up with outpatient stress testing and echocardiogram as well as cardiology follow-up. The patient verbalized understanding and felt safe for discharge. - Patient discharged in satisfactory condition. Vital Signs: Vital signs: Vital Signs Temperature 98.5 F 04/28/21 18:49 Pulse Rate 77 04/28/21 22:53 Respiratory Rate 18 04/28/21 22:53 Blood Pressure 170/100 04/28/21 22:53 Pulse Oximetry 97 04/28/21 22:53 MDM - Chest Pain Medical Records: Attestation: I reviewed the patient's medical records. Lab Data: Attestation: I reviewed the patient's lab results. Labs: Lab Results 04/28/21 04/28/21 04/28/21 Range/Units 21:00 21:00 21:00 WBC 8.2 (4.0-10.0) 10^3/ uL RBC 5.03 (4.1-5.3) 10^6/u L Hgb 15.3 (11.7-16.6) g/dL Hct 45.2 (42.0-52.0) % MCV 89.9 (80-94) fl MCH 30.4 (28.0-34.0) pg MCHC 33.8 (30.0-36.0) g/dL RDW 13.5 (12.1-15.1) % Plt Count 244 (130-400) 10^3/c mm MPV 9.5 (7.4-10.4) fL Neut % (Auto) 61.8 % Lymph % (Auto) 22.5 % [place] % (Auto) 10.5 % Eos % (Auto) 3.6 % Baso % (Auto) 1.0 % Neut # (Auto) 5.04 (1.8-7.7) 10^3/u L Lymph # (Auto) 1.8 (0.8-4.8) 10^3/u L [place] # (Auto) 0.9 (0.2-0.9) 10^3/u L Eos # (Auto) 0.3 (0.0-0.8) 10^3/u L Baso # (Auto) 0.1 (0.0-0.1) 10^3/u L Nucleated RBC % (a uto) 0 % Nucleated RBCs # 0.0 /100WBC Sodium 139 (136-145) mmol/L Potassium 4.0 (3.5-5.1) mmol/L Chloride 102 (98-107) mmol/L Carbon Dioxide 23 (22-29) mmol/L Anion Gap 18.0 (5-19) BUN 5 L (8-23) mg/dL Creatinine 0.5 L (0.7-1.2) mg/dL GFR Calculation 169.6 H (90-130) mL/min Glucose 82 (65-115) mg/dL Calculated Osmolal ity 284 L (285-295) mOsm/k g Calcium 8.8 (8.5-10.5) mg/dL Total Bilirubin 0.3 (0.15-1.2) mg/dL AST 22 (0-40) U/L ALT 29 (0-41) U/L Alkaline Phosphata se 83 (40-130) IU/L Troponin T Baselin e 6 (0-15) ng/L NT-Pro-B Natriuret Pep 40 (0-125) pg/mL Total Protein 6.3 L (6.6-8.7) g/dL Albumin 4.1 (3.5-5.2) g/dL Globulin 2.2 (1.3-4.6) g/dL EKG Data^: EKG 1: Attestation: I personally reviewed and interpreted this EKG as follows: EKG interpretation date: 04/28/21 EKG interpretation time: 21:29 Prior EKG tracings: available for review Interpretation: Twelve-lead EKG shows a regular sinus rhythm at a rate of 71. NV interval 175, QRS duration 98, QTc 416. Normal axis. Interpretation: Sinus rhythm. Discharge Plan Discharge Patient Disposition: Home Clinical Impression: Chest pain Condition: Stable Prescriptions: No Action garlic PO RF: 0 lidocaine HCl [Xylocaine] 10 mg/mL (1 %) solution 1 ml IM ONCE Qty: 1 RF: 0 doxycycline hyclate 100 mg tablet 100 mg PO BID Qty: 30 RF: 0 methylprednisolone acetate 80 mg/mL suspension 80 mg IM ONCE Qty: 1 RF: 0 fluticasone propion-salmeterol [Advair Diskus] 250-50 mcg/dose blister with device 1 inh INHALATION BID PRNRF: 0 aspirin 325 mg tablet 325 mg PO DAILY Qty: 90 RF: 3 lovastatin 40 mg tablet 40 mg PO DAILY Qty: 90 RF: 3 flecainide 100 mg tablet See Rx Instructions .ROUTE .COMPLEX Qty: 180 RF: 1 lisinopril 40 mg tablet 40 mg PO DAILY 30 Days Qty: 90 RF: 1 diltiazem HCl 120 mg capsule,extended release 24hr See Rx Instructions .ROUTE .COMPLEX Qty: 90 RF: 3 Discharge Orders: Discharge ED (Routine); Ordered 04/28/21 Ordered By: Cedrick Alberto Referrals: Ann-Marie Bartlett MD [Primary Care Provider] - Discharge Diet: Usual diet Discharge Activity: Resume usual activity Patient Instructions: Chest Pain (ED) Activity Restrictions/Additional Instructions: Thank you for visiting the emergency department. You were seen and evaluated for chest pain and generalized aches. There was no obvious cause of your condition found. Based on risk factors you are moderate risk for major adverse cardiac events in the next 45 days. As such you will be contacted for outpatient stress test and echocardiogram. Please follow-up with cardiology. Please return to the emergency department for worsening of your symptoms or anything else that you are concerned about and feel needs emergency department evaluation. Coding Level of Care Code ED Mems Integration Engineer for Claire Tomas
--- NOTE | 2021-04-28 20:39 | ECG_ITS ---
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 Measurements Intervals [place] Rate: 71 P: 28 [place]: 175 QRS: 30 QRSD: 98 T: 46 QT: 381 QTc: 416 Interpretive Statements SINUS RHYTHM Compared to ECG 11/03/2020 10:24:16 No significant changes Electronically Signed On 04-28-2021 21:39:11 CDT by Justino Monet M.D. [id number]
[2021-04-28 21:08] LABS: Basophils # 0.1 10^3/uL (0.0-0.1); Eosinophils # 0.3 10^3/uL (0.0-0.8); Eosinophils % 3.6 %; Hematocrit 45.2 % (42.0-52.0); Hemoglobin 15.3 g/dL (11.7-16.6); Lymphocytes # 1.8 10^3/uL (0.8-4.8); Lymphocytes % 22.5 %; Mean Corpuscular HGB Conc 33.8 g/dL (30.0-36.0); Mean Corpuscular Hemoglobin 30.4 pg (28.0-34.0); Mean Corpuscular Volume 89.9 fl (80-94); Mean Platelet Volume 9.5 fL (7.4-10.4); Monocytes # 0.9 10^3/uL (0.2-0.9); Monocytes % 10.5 %; Neutrophils # 5.04 10^3/uL (1.8-7.7); Neutrophils % 61.8 %; Nucleated Red Blood Cells % 0 %; Platelet Count 244 10^3/cmm (130-400); Red Blood Count 5.03 10^6/uL (4.1-5.3); Red Cell Distribution Width 13.5 % (12.1-15.1); White Blood Count 8.2 10^3/uL (4.0-10.0)
[2021-04-28 21:27] LABS: Troponin(5th) Baseline 6 ng/L (0-15)
[2021-04-28 21:35] LABS: Alanine Aminotransferase 29 U/L (0-41); Albumin Level 4.1 g/dL (3.5-5.2); Alkaline Phosphatase 83 IU/L (40-130); Aspartate Amino Transferase 22 U/L (0-40); Blood Urea Nitrogen 5 mg/dL (8-23); Calcium 8.8 mg/dL (8.5-10.5); Carbon Dioxide 23 mmol/L (22-29); Chloride 102 mmol/L (98-107); Globulin 2.2 g/dL (1.3-4.6); Glomerular Filtration Rate 169.6 mL/min (90-130); Glucose 82 mg/dL (65-115); Osmolality Calculated 284 mOsm/kg (285-295); Sodium 139 mmol/L (136-145); Total Bilirubin 0.3 mg/dL (0.15-1.2); Total Protein 6.3 g/dL (6.6-8.7)
[2021-04-28 21:37] LABS: NT Pro B Type Natriuretic Pept 40 pg/mL (0-125)
[2021-04-28] MEDS: acetaminophen 500 mg Tablet 1000 MG PO (21:44)
[2021-04-28] MEDS: ketorolac 30 mg/mL INJ 15 MG IVP (21:44)
[2021-04-28] MEDS: aspirin 81 mg Chew Tablet 324 MG PO (21:46)
[2021-04-28 21:47] VITALS: BP 163/95; PULSE 73; RESP 19; O2SAT 98
[2021-04-28 22:53] VITALS: BP 170/100; PULSE 77; RESP 18; O2SAT 97
--- NOTE | 2021-04-29 09:38 | DCPLANNER ---
radiology services manager had message to schedule an outpatient stress test, and a follow up appointment for patient with [facility] care. radiology services manager faxed signed order for stress test and echo to centralized scheduling, who will call patient with appointment information. radiology services manager called [facility], spoke with Amanda, gave clinic patients information. A follow up appointment was scheduled for Tuesday, June 01, 2021 at 3:[address] Baldwin. radiology services manager called patient and gave him the appointment information.
--- NOTE | 2021-05-25 14:29 | DCPLANNER ---
Patient has an outpatient stress test scheduled for Saturday, June 19, 2021 at 1:00. Patient has an outpatient echo cardiogram for Saturday, June 19, 2021 at 3:00.
--- NOTE | 2021-07-23 16:15 | DCPLANNER ---
Patient had a stress test and an echo cardiogram scheduled but the outpatient tests were cancelled. Patient had a follow up appointment scheduled with [facility] - patient did attend appointment.
== END 2021-04-28 22:53 | disposition home or self-care (01) ==
PROVIDERS: Emergency Medicine; Emergency Provider Emergency Medicine; PCP Family Medicine
DX: R07.9 Chest pain, unspecified (principal); I25.10 Atherosclerotic heart disease of native coronary artery without angina pectoris; J44.9 Chronic obstructive pulmonary disease, unspecified; I10 Essential (primary) hypertension; E78.5 Hyperlipidemia, unspecified; I48.91 Unspecified atrial fibrillation; F17.200 Nicotine dependence, unspecified, uncomplicated; Z79.82 Long term (current) use of aspirin
CPT/HCPCS: 71045; 80053; 83880; 84484; 85025; 93005; 96374; 99283; J1885

== ENCOUNTER → 2021-07-06 14:40 | Outpatient (BNVA) | payer OTHER, SELFPAY | PROVIDERS: PCP Family Medicine; Visit Provider Internal Medicine Cardiovascular Disease | DX: E78.2 Mixed hyperlipidemia (principal); I48.0 Paroxysmal atrial fibrillation | CPT/HCPCS: 80048; 80061; 85025 ==

== ENCOUNTER → 2021-09-17 10:15 | Outpatient (BNVA) | payer OTHER, SELFPAY | PROVIDERS: PCP Family Medicine; Visit Provider Nurse Practitioner Family | DX: Z20.822 Contact with and (suspected) exposure to COVID-19 (principal) | CPT/HCPCS: 87635 ==

== ENCOUNTER → 2021-10-19 14:14 | Outpatient (BNVA) | payer OTHER, SELFPAY | PROVIDERS: PCP Family Medicine; Visit Provider Family Medicine | DX: M54.50 Low back pain, unspecified (principal); M48.061 Spinal stenosis, lumbar region without neurogenic claudication; M54.9 Dorsalgia, unspecified | CPT/HCPCS: 81000 ==

== ENCOUNTER 2021-11-17 06:48 | Outpatient (CLI) | payer OTHER, SELFPAY ==
--- NOTE | 2021-11-17 07:15 | MR_ITS ---
WS: [id number] MRI LUMBAR SPINE NONCONTRAST TECHNIQUE: Sagittal T1, T2 and STIR imaging. Axial T1 and T2 imaging. CLINICAL INFORMATION: increased back pain in absence of known injury COMPARISON: MRI 1 ,018 FINDINGS: Mild lumbar curve. No acute compression. Moderate to severe central canal stenosis L1-L2 with a RIGHT pericentral protrusion and prominent epidural fat is unchanged. Redundancy with crowding of the caud a equina nerve rootlets proximal to the stenosis. L1-L2: RIGHT pericentral protrusion with impingement on the RIGHT subarticular recess. Moderate to se mauricio central canal stenosis. Prominent dorsal epidural fat contributes to stenosis. Mild RIGHT forami nal narrowing. Moderate facet arthropathy. L2-L3: Mild annular bulging. Slight effacement of ventral thecal sac. Prominent circumferential epidu ral fat and moderate central canal stenosis. This has progressed compared to 2018. Mild RIGHT foramin al narrowing. Moderate facet arthropathy. L3-L4: Mild disc bulging with slight effacement of ventral thecal sac. Moderate central canal stenosi s due to prominent circumferential epidural fat has progressed. Moderate facet arthropathy. Mild bila teral foraminal narrowing. L4-L5: Mild disc bulging with moderate central canal stenosis. Moderate facet arthropathy. Mild bilat eral foraminal narrowing with small bilateral foraminal protrusions. This appears stable compared to previous. L5-S1: Disc bulging with slight contact of the LEFT greater than RIGHT S1 nerve roots. Mild facet art hropathy. Spinal canal is patent. Mild RIGHT foraminal narrowing. Visualized pelvic bony structures: Normal. Paravertebral soft tissues: Normal. Small central disc protrusion T6-T7 and T7-T8. MR/MR lumbar spine wo con* [id number] IMPRESSION: 1. Moderate to severe central canal stenosis L1-L2 with RIGHT pericentral prot rusion. Impingement on the traversing RIGHT L2 nerve root. Central canal stenos is is stable at this level. 2. Moderate central canal stenosis L2-L3 and L3-L4 with prominent circumferent ial epidural fat results in narrowing of the thecal sac. This is progressed com pared to the prior examinations. 3. Moderate central canal stenosis L4-L5 is unchanged. 4. Mild foraminal narrowing more prominent at bilateral L3-L4 and RIGHT L4-L5. 5. Moderate facet arthropathy L3-L4 and L4-L5.
== END 2021-11-17 06:49 | disposition home or self-care (01) ==
LOC: RAD 06:48
PROVIDERS: PCP Family Medicine; Visit Provider Family Medicine
DX: M48.061 Spinal stenosis, lumbar region without neurogenic claudication (principal)
CPT/HCPCS: 72148

== ENCOUNTER → 2021-11-19 09:17 | Outpatient (BNVA) | payer OTHER, SELFPAY | PROVIDERS: PCP Family Medicine; Visit Provider Orthopaedic Surgery | DX: M48.061 Spinal stenosis, lumbar region without neurogenic claudication (principal); M54.2 Cervicalgia | CPT/HCPCS: 72050; 72110 ==

== ENCOUNTER 2021-12-25 09:50 | Observation (INO) | payer OTHER, SELFPAY ==
[2021-12-25] VITALS (31 sets, daily range): BP systolic 71–117; BP diastolic 40–77; PULSE 80–149; RESP 13–27; TEMP 36.1–36.7; O2SAT 94–100; BMI 36.6
--- NOTE | 2021-12-25 10:23 | XR_ITS ---
WS: [id number] Exam: XR chest 1V portable [id number] Date/Time of Exam: 12/25/2021 10:34 AM Reason For Exam: dyspnea/cough Comparison 04/28/2021. The lungs are clear and fully expanded. Normal cardiomediastinal silhouette. No pleural effusions. Se veral old left rib fractures. Fusion hardware noted in the lower C-spine. XR/XR chest 1V portable [id number] IMPRESSION: 1. No acute cardiopulmonary finding.
--- NOTE | 2021-12-25 10:23 | ECG_ITS ---
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 Measurements Intervals [place] Rate: 126 P: [place]: QRS: 22 QRSD: 94 T: 64 QT: 282 QTc: 409 Interpretive Statements ATRIAL FIBRILLATION WITH RAPID VENTRICULAR RESPONSE ABNORMAL RHYTHM ECG Compared to ECG 05/20/2021 18:07:23 Sinus rhythm no longer present Electronically Signed On 12-25-2021 23:22:54 CDT by Ania Montoya M.D. [email or web address] Holding Companyclaiborne county medical centerPrylosmount [facility].[employer] ([email or web address])/store/[id number] f
[2021-12-25 10:43] LABS: Basophils # 0.1 10^3/uL (0.0-0.1); Eosinophils # 0.1 10^3/uL (0.0-0.8); Eosinophils % 1.8 %; Hematocrit 49.2 % (42.0-52.0); Hemoglobin 16.7 g/dL (11.7-16.6); Lymphocytes # 1.4 10^3/uL (0.8-4.8); Lymphocytes % 19.8 %; Mean Corpuscular HGB Conc 33.9 g/dL (30.0-36.0); Mean Corpuscular Hemoglobin 30.5 pg (28.0-34.0); Mean Corpuscular Volume 89.9 fl (80-94); Mean Platelet Volume 9.6 fL (7.4-10.4); Monocytes # 0.9 10^3/uL (0.2-0.9); Monocytes % 12.7 %; Neutrophils # 4.61 10^3/uL (1.8-7.7); Neutrophils % 63.7 %; Nucleated Red Blood Cells % 0 %; Platelet Count 255 10^3/cmm (130-400); Red Blood Count 5.47 10^6/uL (4.1-5.3); Red Cell Distribution Width 14.2 % (12.1-15.1); White Blood Count 7.2 10^3/uL (4.0-10.0)
--- NOTE | 2021-12-25 10:53 | W.ED.ARRPALP ---
HPI - Arrhythmia/Palpitations General: Chief Complaint: Arrhythmia/Palpitations Stated Complaint: chest pain & tightness/leg weakness/headache/bp Time Seen by Provider: 12/25/21 10:18 Source: patient Mode of arrival: ambulatory Limitations: no limitations History of Present Illness: 61-year-old male with a known history of atrial fibrillation. He is on flecainide he supposed to be on it twice daily but a year ago he cut down to once daily he also takes diltiazem 120 mg daily which he states he has been taking regularly. This morning he has heart rate began to increase with palpitations he could not feel that he was in A. fib with RVR. He had some chest tightness fluttering some weakness and generalized aching. He states all of his symptoms resolved when he lays down and worsen if he is up and walking. He has not previously had any known coronary artery disease. MD complaint: rapid heart beat, heart racing and palpitations Onset (ago): hour(s) Duration: constant Severity: moderate Context: occurred during rest Arrhythmia history: atrial fibrillation Associated symptoms: Deny anxiety, cough, diaphoresis, muscle cramps, nausea, paresthesias, pre-syncope, sense of impending doom, short of breath, syncope or vomiting Review of Systems Const: Denies: fever(s), chills or diaphoresis ENMT: Denies: throat pain, ear or mastoid pain, nasal discharge or nasal congestion Card: Reports: chest pain, palpitations and irregular heart rhythm; Denies: syncope or pre-syncope Resp: Denies: dyspnea, productive cough or non-productive cough GI: Denies: nausea or vomiting : Denies: flank pain, dysuria, urinary frequency or urinary urgency Musc: Denies: muscle cramps Skin/Breast: Denies: rash or pruritus Psych: Denies: anxiety PFSH ED PFSH: Medical History Atrial fibrillation COPD (chronic obstructive pulmonary disease) GERD (gastroesophageal reflux disease) Hyperlipidemia Hypertension Lower respiratory infection Smoking Spinal stenosis at L4-L5 level Family History Other Hypertension Myocardial infarction Stroke Social History Smoking and tobacco status: current every day smoker Physical Exam Const: GENERAL APPEARANCE: cooperative and comfortable ORIENTATION/CONSCIOUSNESS: Yes awake, Yes oriented to person, Yes oriented to place and Yes oriented to time HENMT: COMMON NORMALS: normocephalic, atraumatic and hearing grossly normal bilaterally HEAD & SCALP: normocephalic and atraumatic Resp: COMMON NORMALS: normal respiratory effort, No retractions, No use of accessory muscles and clear to auscultation bilaterally AUSCULTATION: clear to auscultation bilaterally Cardio: COMMON NORMALS: No murmurs present (Cardio) RATE: tachycardic RHYTHM: abnormal rhythm irregularly irregular GI: COMMON NORMALS: Soft to palpation and No hepatosplenomegaly present AUSCULTATION: Yes normoactive bowel sounds PALPATION: Yes Soft to palpation, No Tenderness to palpation present (GI), No Guarding due to palpation present (GI) and Yes No hepatosplenomegaly present Extremity: COMMON NORMALS: normal to inspection, capillary refill normal, no clubbing, cyanosis or edema, no calf tenderness and no pedal edema Neuro: SENSORIUM/ORIENTATION: Yes oriented to person, Yes oriented to place and Yes oriented to time Skin: COMMON NORMALS: no rashes or lesions noted GENERAL SKIN EXAM: no rashes or lesions noted Course Vital Signs: Vital signs: Vital Signs Temperature 97.0 F L 12/26/21 12:31 Pulse Rate 71 12/26/21 12:31 Respiratory Rate 23 H 12/26/21 12:31 Blood Pressure 139/86 12/26/21 12:31 Pulse Oximetry 98 12/26/21 12:31 MDM - Arrhythmia/Palpitations Medical Decision Making Attempted various strategies to control rate. We did get him to slow down of the small however when we turned it back down despite the oral flecainide and beta-kevin we had given him his rate did not stay well controlled. Blood pressure did not look like it would tolerate any further oral interventions. We will diminish keep his rate controlled on the esmolol drip will return back we will go ahead and admit the patient discussed with hospitalist orders written. Medical Records I reviewed the patient's medical records. Lab Data I reviewed the patient's lab results. : 12/26/21 03:35 12/26/21 03:35 Radiology Impressions Chest X-Ray 12/25/21 10:23 IMPRESSION: 1. No acute cardiopulmonary finding. Laboratory Results WBC 7.2 10^3/uL (4.0-10.0) 12/25/21 10:37 RBC 5.47 10^6/uL (4.1-5.3) H 12/25/21 10:37 Hgb 16.7 g/dL (11.7-16.6) H 12/25/21 10:37 Hct 49.2 % (42.0-52.0) 12/25/21 10:37 MCV 89.9 fl (80-94) 12/25/21 10:37 MCH 30.5 pg (28.0-34.0) 12/25/21 10:37 MCHC 33.9 g/dL (30.0-36.0) 12/25/21 10:37 RDW 14.2 % (12.1-15.1) 12/25/21 10:37 Plt Count 255 10^3/cmm (130-400) 12/25/21 10:37 MPV 9.6 fL (7.4-10.4) 12/25/21 10:37 Neut % (Auto) 63.7 % 12/25/21 10:37 Lymph % (Auto) 19.8 % 12/25/21 10:37 [place] % (Auto) 12.7 % 12/25/21 10:37 Eos % (Auto) 1.8 % 12/25/21 10:37 Baso % (Auto) 1.0 % 12/25/21 10:37 Neut # (Auto) 4.61 10^3/uL (1.8-7.7) 12/25/21 10:37 Lymph # (Auto) 1.4 10^3/uL (0.8-4.8) 12/25/21 10:37 [place] # (Auto) 0.9 10^3/uL (0.2-0.9) 12/25/21 10:37 Eos # (Auto) 0.1 10^3/uL (0.0-0.8) 12/25/21 10:37 Baso # (Auto) 0.1 10^3/uL (0.0-0.1) 12/25/21 10:37 Nucleated RBC % (auto) 0 % 12/25/21 10:37 Nucleated RBCs # 0.0 /100WBC 12/25/21 10:37 Sodium 136 mmol/L (136-145) 12/25/21 10:37 Potassium 4.9 mmol/L (3.5-5.1) 12/25/21 10:37 Chloride 100 mmol/L (98-107) 12/25/21 10:37 Carbon Dioxide 24 mmol/L (22-29) 12/25/21 10:37 Anion Gap 16.9 (5-19) 12/25/21 10:37 BUN 8 mg/dL (8-23) 12/25/21 10:37 Creatinine 0.6 mg/dL (0.7-1.2) L 12/25/21 10:37 GFR Calculation 137.0 mL/min (90-130) H 12/25/21 10:37 Glucose 104 mg/dL (65-115) 12/25/21 10:37 Calculated Osmolality 281 mOsm/kg (285-295) L 12/25/21 10:37 Calcium 8.8 mg/dL (8.5-10.5) 12/25/21 10:37 Total Bilirubin 0.4 mg/dL (0.15-1.2) 12/25/21 10:37 AST 20 U/L (0-40) 12/25/21 10:37 ALT 33 U/L (0-41) 12/25/21 10:37 Alkaline Phosphatase 78 IU/L (40-130) 12/25/21 10:37 Troponin T Baseline 15 ng/L (0-15) 12/25/21 10:37 Troponin T 120 Minute 14.77 ng/L (0-15) 12/25/21 12:34 Delta Troponin T -0.23 ABS# (0-10) L 12/25/21 12:34 Total Protein 6.3 g/dL (6.6-8.7) L 12/25/21 10:37 Albumin 4.6 g/dL (3.5-5.2) 12/25/21 10:37 Globulin 1.7 g/dL (1.3-4.6) 12/25/21 10:37 TSH 0.95 uIU/mL (0.27-4.20) 12/25/21 10:37 Urine Color Yellow (Yellow) 12/25/21 12:23 Urine Appearance Clear (CLEAR) 12/25/21 12:23 Urine pH 6 (5-7) 12/25/21 12:23 Ur Specific [place] 1.015 (1.005-1.030) 12/25/21 12:23 Urine Protein Neg (Negative) 12/25/21 12:23 Urine Glucose (UA) Norm (Normal) 12/25/21 12:23 Urine Ketones Negative (Negative) 12/25/21 12:23 Urine Blood Neg (Negative) 12/25/21 12:23 Urine Nitrate Negative (Negative) 12/25/21 12:23 Urine Bilirubin Neg (Negative) 12/25/21 12:23 Urine Urobilinogen Norm mg/dL (Negative) 12/25/21 12:23 Ur Leukocyte Esterase Negative (Negative) 12/25/21 12:23 Critical Care Time Critical Care Time: Critical Care Time: Yes Total Critical Care Time: 45 Attestation: The high probability of a clinically significant, sudden or life threatening deterioration of the patient's cardiovascular system(s) required my full and direct attention, intervention and personal management. The critical care time is as shown. This time is in addition to time spent performing any reported procedures but includes the following: [x] Data and vital sign review and interpretation [x] Patient assessment, examination and intervention [x] Documentation [x] Medication orders and management Discharge Plan Discharge Patient Disposition: Admitted As Inpatient Admit Provider: Aguilar Lux Clinical Impression: Atrial fibrillation with rapid ventricular response, ETOHism, Hypertension, COPD (chronic obstructive pulmonary disease) Condition: Stable Discharge Orders: Discharge Order (Routine); Ordered 12/26/21 Ordered By: Aguilar Lux Coding Level of Care Code ED 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
[2021-12-25 11:06] LABS: Alanine Aminotransferase 33 U/L (0-41); Albumin Level 4.6 g/dL (3.5-5.2); Alkaline Phosphatase 78 IU/L (40-130); Anion Gap 16.9 (5-19); Aspartate Amino Transferase 20 U/L (0-40); Blood Urea Nitrogen 8 mg/dL (8-23); Calcium 8.8 mg/dL (8.5-10.5); Carbon Dioxide 24 mmol/L (22-29); Chloride 100 mmol/L (98-107); Globulin 1.7 g/dL (1.3-4.6); Glucose 104 mg/dL (65-115); Osmolality Calculated 281 mOsm/kg (285-295); Potassium 4.9 mmol/L (3.5-5.1); Sodium 136 mmol/L (136-145); Total Bilirubin 0.4 mg/dL (0.15-1.2); Total Protein 6.3 g/dL (6.6-8.7)
[2021-12-25 11:08] LABS: Troponin(5th) Baseline 15 ng/L (0-15)
[2021-12-25] MEDS: esmolol drip 2,500 MG/250 ML PREMIX 50 MG IV ×2 (11:18→20:49)
[2021-12-25] MEDS: flecainide 100 mg Tablet PO ×2 (11:58→21:28)
--- NOTE | 2021-12-25 12:23 | ECG_ITS ---
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 Measurements Intervals [place] Rate: 102 P: [place]: QRS: 16 QRSD: 94 T: 41 QT: 331 QTc: 433 Interpretive Statements ATRIAL FIBRILLATION WITH RAPID VENTRICULAR RESPONSE ABNORMAL RHYTHM ECG Compared to ECG 12/25/2021 10:06:22 No significant changes Electronically Signed On 12-25-2021 23:33:28 CDT by Ania Montoya M.D. [email or web address] [email or web address] county regional medical centerDiasome/store/OM/[id number]
[2021-12-25 13:11] LABS: Troponin 5 2HR 14.77 ng/L (0-15)
[2021-12-25 13:11] LABS: Add Urine Microscopic? NO; Charge for UA Resulting for Rev
[2021-12-25 13:17] LABS: Bilirubin Urine Neg (Negative); Blood Urine Neg (Negative); Glucose Urine UA Norm (Normal); Ketones Urine Negative (Negative); Leukocyte Esterase Urine Negative (Negative); Nitrate Urine Negative (Negative); Protein Urine Neg (Negative); Specific Gravity, Urine 1.015 (1.005-1.030); Urine Appearance Clear (CLEAR); Urine Color Yellow (Yellow); Urobilinogen Urine Norm (Negative); pH Urine 6 (5-7)
[2021-12-25 13:50] LABS: Troponin 5 2HR Delta -0.23 ABS# (0-10)
--- NOTE | 2021-12-25 16:23 | ECG_ITS ---
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 Measurements Intervals [place] Rate: 100 P: [place]: QRS: 14 QRSD: 97 T: 37 QT: 342 QTc: 443 Interpretive Statements ATRIAL FIBRILLATION WITH RAPID VENTRICULAR RESPONSE ABNORMAL RHYTHM ECG Compared to ECG 12/25/2021 12:20:08 No significant changes Electronically Signed On 12-25-2021 23:34:34 CDT by Ania Montoya M.D. [email or web address] Systemsselect medical specialty hospital - columbus southHighFive Mobile/store/OM/[id number]
--- NOTE | 2021-12-25 16:56 | P.HP_ITS ---
Providers/Chief Complaint Admitting Physician: Aguilar Lux Primary Care Provider: Ann-Marie Bartlett MD Chief Complaint: Palpitations History of Present Illness Juancarlos Reddy is a 61 year old male with past medical history of paroxysmal atrial fibrillation, on diltiazem, flecainide, aspirin, chronic pain syndrome, chronic back pain, hypertension, daily alcohol use and tobacco use, as well as COPD who is presenting to emergency room with complaints of palpitations. The patient reports that his symptoms started suddenly this morning. In emergency room he was found to have A. fib with RVR. No ischemic changes on EKG. The patient was given his morning dose of flecainide and dose of small bowel without significant improvement. The heart rate is slightly decreased but still with rapid ventricular response. The patient reports feeling a little better. He is very agitated and restless. He states that he wants to smoke. He denies any associated chest pain, dizziness or lightheadedness. He denies nausea, vomiting, abdominal pain. No shortness of breath or wheezing. According to his who is at the bedside he might be dehydrated. He does not drink enough flu ids. The patient also reports drinking up to 5 beers every day. He reports similar episodes in the past. Reports chronic back pain. Denies any other problems. Review of systems otherwise is negative except positive negative pertinent as described above. All systems are reviewed. Medications/Allergies Home Medications Medication Instructions Recorded Confirmed Last Taken Type aspirin 325 mg tablet 325 mg PO DAILY #90 tab 01/14/21 12/25/21 12/25/21 Rx ascorbic acid (vitamin C) 500 mg 500 mg PO DAILY 07/06/21 12/25/21 12/25/21 History tablet lisinopril 40 mg tablet 40 mg PO DAILY 30 Days #90 tab 07/27/21 12/25/21 12/25/21 Rx fluticasone 250 mcg-salmeterol 50 1 inh INHALATION BID PRN #60 ea 09/01/21 12/25/21 Unknown Rx mcg/dose blistr powdr for inhalation (Advair Diskus) diltiazem HCl 120 mg 120 mg PO DAILY 12/25/21 12/25/21 12/25/21 History capsule,extended release 24 hr flecainide 100 mg tablet 100 mg PO BID 12/25/21 12/25/21 12/25/21 History garlic 2,000 mg PO DAILY 12/25/21 12/25/21 12/25/21 History lovastatin 40 mg tablet 40 mg PO DAILY 12/25/21 12/25/21 12/25/21 History omega-3 fatty acids-fish oil 684 1 cap PO DAILY 12/25/21 12/25/21 12/25/21 History mg-1,200 mg capsule,delayed release Allergies Allergy/AdvReac Type Severity Reaction Status Date / Time Sulfa (Sulfonamide Allergy ADR-Itching Verified 12/25/21 12:54 Antibiotics) PFSH Acute PFSH: Medical History Atrial fibrillation COPD (chronic obstructive pulmonary disease) GERD (gastroesophageal reflux disease) Hyperlipidemia Hypertension Lower respiratory infection Smoking Spinal stenosis at L4-L5 level Family History Other Hypertension Myocardial infarction Stroke Social History Smoking and tobacco status: current every day smoker Vitals/I&O/Wt Last Vital Signs Temp 98.1 F 12/25/21 09:54 Pulse 97 12/25/21 14:27 Resp 16 12/25/21 14:27 BP 100/68 12/25/21 14:27 Pulse Ox 98 12/25/21 14:27 Weight last 48 hrs Weight 99.79 kg Physical Exam 2 Narrative: The patient is awake alert oriented. No acute distress but he is restless and seemingly frustrated by the fact that his heart rate is still racing and he needs to be admitted. Skin is warm and dry. Moist mucous membranes Eyes PERRL, extraocular muscles are intact Neck no JVD Lungs bilateral scattered fine wheezing. No respiratory distress Heart S1, S2, irregularly irregular Abdomen is soft, tender, bowel sounds are present Extremities trace edema, no cyanosis or calf tenderness bilaterally Neuro examination is nonfocal. Normal speech. Data : 12/25/21 10:37 12/25/21 10:37 Other Labs: Radiology Impressions Chest X-Ray 12/25/21 10:23 IMPRESSION: 1. No acute cardiopulmonary finding. Laboratory Results WBC 7.2 10^3/uL (4.0-10.0) 12/25/21 10:37 RBC 5.47 10^6/uL (4.1-5.3) H 12/25/21 10:37 Hgb 16.7 g/dL (11.7-16.6) H 12/25/21 10:37 Hct 49.2 % (42.0-52.0) 12/25/21 10:37 MCV 89.9 fl (80-94) 12/25/21 10:37 MCH 30.5 pg (28.0-34.0) 12/25/21 10:37 MCHC 33.9 g/dL (30.0-36.0) 12/25/21 10:37 RDW 14.2 % (12.1-15.1) 12/25/21 10:37 Plt Count 255 10^3/cmm (130-400) 12/25/21 10:37 MPV 9.6 fL (7.4-10.4) 12/25/21 10:37 Neut % (Auto) 63.7 % 12/25/21 10:37 Lymph % (Auto) 19.8 % 12/25/21 10:37 [place] % (Auto) 12.7 % 12/25/21 10:37 Eos % (Auto) 1.8 % 12/25/21 10:37 Baso % (Auto) 1.0 % 12/25/21 10:37 Neut # (Auto) 4.61 10^3/uL (1.8-7.7) 12/25/21 10:37 Lymph # (Auto) 1.4 10^3/uL (0.8-4.8) 12/25/21 10:37 [place] # (Auto) 0.9 10^3/uL (0.2-0.9) 12/25/21 10:37 Eos # (Auto) 0.1 10^3/uL (0.0-0.8) 12/25/21 10:37 Baso # (Auto) 0.1 10^3/uL (0.0-0.1) 12/25/21 10:37 Nucleated RBC % (auto) 0 % 12/25/21 10:37 Nucleated RBCs # 0.0 /100WBC 12/25/21 10:37 Sodium 136 mmol/L (136-145) 12/25/21 10:37 Potassium 4.9 mmol/L (3.5-5.1) 12/25/21 10:37 Chloride 100 mmol/L (98-107) 12/25/21 10:37 Carbon Dioxide 24 mmol/L (22-29) 12/25/21 10:37 Anion Gap 16.9 (5-19) 12/25/21 10:37 BUN 8 mg/dL (8-23) 12/25/21 10:37 Creatinine 0.6 mg/dL (0.7-1.2) L 12/25/21 10:37 GFR Calculation 137.0 mL/min (90-130) H 12/25/21 10:37 Glucose 104 mg/dL (65-115) 12/25/21 10:37 Calculated Osmolality 281 mOsm/kg (285-295) L 12/25/21 10:37 Calcium 8.8 mg/dL (8.5-10.5) 12/25/21 10:37 Total Bilirubin 0.4 mg/dL (0.15-1.2) 12/25/21 10:37 AST 20 U/L (0-40) 12/25/21 10:37 ALT 33 U/L (0-41) 12/25/21 10:37 Alkaline Phosphatase 78 IU/L (40-130) 12/25/21 10:37 Troponin T Baseline 15 ng/L (0-15) 12/25/21 10:37 Troponin T 120 Minute 14.77 ng/L (0-15) 12/25/21 12:34 Delta Troponin T -0.23 ABS# (0-10) L 12/25/21 12:34 Total Protein 6.3 g/dL (6.6-8.7) L 12/25/21 10:37 Albumin 4.6 g/dL (3.5-5.2) 12/25/21 10:37 Globulin 1.7 g/dL (1.3-4.6) 12/25/21 10:37 Urine Color Yellow (Yellow) 12/25/21 12:23 Urine Appearance Clear (CLEAR) 12/25/21 12:23 Urine pH 6 (5-7) 12/25/21 12:23 Ur Specific [place] 1.015 (1.005-1.030) 12/25/21 12:23 Urine Protein Neg (Negative) 12/25/21 12:23 Urine Glucose (UA) Norm (Normal) 12/25/21 12:23 Urine Ketones Negative (Negative) 12/25/21 12:23 Urine Blood Neg (Negative) 12/25/21 12:23 Urine Nitrate Negative (Negative) 12/25/21 12:23 Urine Bilirubin Neg (Negative) 12/25/21 12:23 Urine Urobilinogen Norm mg/dL (Negative) 12/25/21 12:23 Ur Leukocyte Esterase Negative (Negative) 12/25/21 12:23 A&P Assessment and plan (1) Atrial fibrillation with RVR: Status: Acute (2) Dehydration: Status: Acute (3) COPD (chronic obstructive pulmonary disease): Status: Acute Qualifiers: COPD type: chronic bronchitis Chronic bronchitis type: simple Qualified Code(s): J41.0 - Simple chronic bronchitis (4) ETOHism: Status: Acute (5) Chronic pain: Status: Acute (6) Hypertension: Status: Acute Qualifiers: Hypertension type: essential hypertension Qualified Code(s): I10 - Essential (primary) hypertension (7) Smoking: Status: Acute Plan Juancarlos Reddy is a 61 year old male with past medical history of paroxysmal atrial fibrillation, on diltiazem, flecainide, aspirin, chronic pain syndrome, chronic back pain, hypertension, daily alcohol use and tobacco use, as well as COPD who is presenting to emergency room with complaints of palpitations. A. fib with RVR most likely due to EtOH, dehydration, possible noncompliance with medications. We will admit him to stepdown or ICU where we can continue esmolol drip. We will resume his home medications. We will hydrate him which I hope will help him with the heart rate and prevent dehydration with the medications. Will order TSH and echo. We will continue home aspirin. Dehydration. As above. EtOH. Will start Librium. I am hoping that this will control his frustration and anger as well as possible withdrawal symptoms. We will be on CIWA protocol and supplemental vitamins. Tobacco abuse. Counseling is provided. I explicitly informed him that he will not be able to smoke in the hospital or have any special privileges to smoke outside. We will provide him with nicotine patch. Hypertension. He received relatively hypotensive. We will hold his home lisinopril. We will continue medications for rate control. We will continue IV fluids. DVT prophylaxis. Lovenox. CODE STATUS. He wants to be full code. The plan of care was discussed with the patient and his . They both verbalized understanding and agreement. Attestations Medical Necessity Statement*: Observation. Hoping to discharge. After correction of his RVR and maintaining rate control with oral medications. 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
[2021-12-25 17:22] LABS: Troponin 5 6HR 11.31 ng/L (0-15)
[2021-12-25 17:59] LABS: Troponin 5 6HR Delta -3.69 ng/L (0-12)
[2021-12-25] MEDS: sodium chloride 0.9% 1,000 ML 100 ML IV (19:20)
[2021-12-25 19:22] LABS: Thyroid Stimulating Hormone 0.95 uIU/mL (0.27-4.20)
--- NOTE | 2021-12-25 20:20 | PC.NURSE ---
Retimed Medications Patient's nicotine patch, lovenox, cardizem, and librium medications late to be administered. Dr. Steele called and verbal order received to administer now and to retime them accordingly. Pharmacy called and medication schedules retimed by pharmacist. See MAR for medication administration.
[2021-12-25] MEDS: enoxaparin 40 mg/0.4 mL Syringe SUBCUT (20:41)
[2021-12-25] MEDS: nicotine 14 mg Patch 1 PATCH TRANSDERMA (20:42)
[2021-12-25] MEDS: chlordiazePOXIDE 25 mg Capsule PO (20:42)
[2021-12-25] MEDS: dilTIAZem ER (24HR) 120 mg Capsule PO (20:42)
[2021-12-25] MEDS: acetaminophen 325 mg Tablet 650 MG PO (20:51)
[2021-12-25] MEDS: sodium chloride 0.9% 500 ML 999 ML IV (22:55)
[2021-12-26] VITALS (42 sets, daily range): BP systolic 86–147; BP diastolic 54–86; PULSE 60–84; RESP 13–26; TEMP 36.1–36.7; O2SAT 93–100; BMI 37.9
--- NOTE | 2021-12-26 00:01 | USCV_ITS ---
Juancarlos Reddy Age: 61 Gender: M : 1960 Exam Date: 12/26/2021 00:17 Ordering Phys: Aguilar Lux MD Technologist: Anthony Fajardo [place] [facility] [place]: afib BP: 117 / 76 HR: 71 Rhythm: Sinus Technical Quality: Adequate MEASUREMENTS (Male / Female) Normal Values 2D ECHO LV Diastolic Diameter PLAX 3.5 cm 4.2 - 5.9 / 3.9 - 5.3 cm LV Systolic Diameter PLAX 1.8 cm IVS Diastolic Thickness 1.7 cm 0.6 - 1.0 / 0.6 - 0.9 cm IVS Systolic Thickness 1.9 cm LVPW Diastolic Thickness 2.4 cm 0.6 - 1.0 / 0.6 - 0.9 cm LVPW Systolic Thickness 3.2 cm LV Ejection Fraction 2D Teich 76.7 % LV Ejection Fraction MOD 2C 52.0 % LV Ejection Fraction 2C AL 52.2 % LA Diameter 4.0 cm LA Width 4.9 cm LA Height 6.9 cm RA Width 4.1 cm RA Height 5.2 cm Aorta at Sinotubular Diameter 2.6 cm M-MODE Aortic Annulus Diameter 3.2 cm LA Ao Ratio MM 1.4 MV E Point Septal Separation 0.6 cm DOPPLER AV Peak Velocity 125.2 cm/s LVOT Peak Velocity 110.3 cm/s MV Area PHT 2.4 cm squared Mitral E to A Ratio 0.9 MV E' Velocity 48.5 cm/s Mitral E to MV E' Ratio 11.1 Mitral E to LV E' Lateral Ratio 11.6 Mitral E to LV E' Septal Ratio 10.9 Right Atrial Pressure 3.0 mmHg PV Peak Velocity 92.0 cm/s FINDINGS Left Ventricle Normal left ventricular size. LV systolic function is normal with EF of 55-60%. No regional wall motion abnormalities. Normal diastolic filling pattern. Right Ventricle Right ventricle is grossly normal Right Atrium The right atrium is normal in size. Left Atrium The left atrium is normal in size. Mitral Valve Moderate annular calcification without significant stenosis or prolapse. There is trace regurgitation. Aortic Valve Aortic valve is thickened without significant stenosis. There is no aortic regurgitation. Tricuspid Valve Structurally normal tricuspid valve without significant stenosis. Trace tricuspid regurgitation. Pulmonary artery systolic pressure is normal. Pulmonic Valve Not well visualized Pericardium Normal pericardium without effusion. Aorta Normal ascending aorta dimension. CONCLUSIONS Technically limited quality echocardiogram because of poor ultrasonic windows LV systolic function is normal with EF of 55-60% Normal diastolic function Moderate mitral annular calcification. Trace mitral regurgitation Trace tricuspid regurgitation No comparison studies are available Justino Monet MD (Electronically Signed) Final Date: 26 December 2021 11:46 S
[2021-12-26] MEDS: chlordiazePOXIDE 25 mg Capsule PO ×2 (02:25→08:22)
[2021-12-26 04:56] LABS: Basophils # 0.1 10^3/uL (0.0-0.1); Basophils % 1.1 %; Eosinophils # 0.3 10^3/uL (0.0-0.8); Eosinophils % 3.8 %; Hematocrit 42.9 % (42.0-52.0); Hemoglobin 14.3 g/dL (11.7-16.6); Lymphocytes # 1.7 10^3/uL (0.8-4.8); Lymphocytes % 26.2 %; Mean Corpuscular HGB Conc 33.3 g/dL (30.0-36.0); Mean Corpuscular Hemoglobin 30.6 pg (28.0-34.0); Mean Corpuscular Volume 91.9 fl (80-94); Mean Platelet Volume 9.9 fL (7.4-10.4); Monocytes # 0.8 10^3/uL (0.2-0.9); Monocytes % 12.6 %; Neutrophils # 3.65 10^3/uL (1.8-7.7); Neutrophils % 55.1 %; Nucleated Red Blood Cells % 0 %; Platelet Count 223 10^3/cmm (130-400); Red Blood Count 4.67 10^6/uL (4.1-5.3); Red Cell Distribution Width 14.7 % (12.1-15.1); White Blood Count 6.6 10^3/uL (4.0-10.0)
--- NOTE | 2021-12-26 05:12 | PC.NURSE ---
BP Patient BP 78/40 MAP of 52, HR 88. Esmolol paused, Dr. Steele called and notified. Telephone order received to keep esmolol paused and to administer a 500 ml bolus of NS once. Bolus administered per NOV while esmolol remains paused. Shortly afterwards MAP sustaining around 70-80s.
[2021-12-26 05:24] LABS: Alanine Aminotransferase 25 U/L (0-41); Albumin Level 3.6 g/dL (3.5-5.2); Alkaline Phosphatase 68 IU/L (40-130); Anion Gap 12.9 (5-19); Aspartate Amino Transferase 17 U/L (0-40); Blood Urea Nitrogen 16 mg/dL (8-23); Calcium 7.9 mg/dL (8.5-10.5); Carbon Dioxide 22 mmol/L (22-29); Chloride 103 mmol/L (98-107); Chol HDL Ratio 4.41 mg/dL (1.0-5.00); Cholesterol 172 mg/dL (0-200); Globulin 2.3 g/dL (1.3-4.6); Glomerular Filtration Rate 114.6 mL/min (90-130); Glucose 99 mg/dL (65-115); HDL Cholesterol 39 mg/dL (60-100); LDL Cholesterol Calculated 62 mg/dL (50-129); LDL HDL Ratio 1.59 RATIO (0.00-3.22); Magnesium 2.3 mg/dL (1.7-2.3); Osmolality Calculated 279 mOsm/kg (285-295); Potassium 3.9 mmol/L (3.5-5.1); Sodium 134 mmol/L (136-145); Total Bilirubin 0.2 mg/dL (0.15-1.2); Total Protein 5.9 g/dL (6.6-8.7); Triglycerides 357 mg/dL (0-150)
[2021-12-26] MEDS: dilTIAZem ER (24HR) 120 mg Capsule PO (08:16)
[2021-12-26] MEDS: multivitamin therapeutic Tablet 1 TAB PO (08:16)
[2021-12-26] MEDS: folic acid 1 mg Tablet PO (08:16)
[2021-12-26] MEDS: aspirin 325 mg Tablet PO (08:16)
[2021-12-26] MEDS: ascorbic acid 500 mg Tablet PO (08:17)
[2021-12-26] MEDS: thiamine 100 mg Tablet PO (08:17)
[2021-12-26] MEDS: atorvastatin 40 mg Tablet 20 MG PO (08:17)
[2021-12-26] MEDS: sodium chloride 0.9% 1,000 ML 100 ML IV (08:25)
[2021-12-26] MEDS: flecainide 100 mg Tablet PO (08:31)
--- NOTE | 2021-12-26 12:42 | PC.NURSE ---
pt awaiting to leave pending reading of echo last night request to be called at home if is abnormal doctor called and notified orders noted and discharged at this time
--- NOTE | 2021-12-26 12:53 | PM.DCS ---
Discharge Providers Date of Admission: 12/25/21 16:00 Date of Discharge: December 26, 2021 Attending Provider at Admission: Aguilar Lux Attending Provider at Discharge: Aguilar Lux Primary Care Provider: Ann-Marie Bartlett MD Diagnoses at Discharge Discharge Diagnosis (1) Atrial fibrillation with RVR: Status: Acute (2) Dehydration: Status: Acute (3) COPD (chronic obstructive pulmonary disease): Status: Acute Qualifiers: COPD type: chronic bronchitis Chronic bronchitis type: simple Qualified Code(s): J41.0 - Simple chronic bronchitis (4) ETOHism: Status: Acute (5) Chronic pain: Status: Acute (6) Hypertension: Status: Acute Qualifiers: Hypertension type: essential hypertension Qualified Code(s): I10 - Essential (primary) hypertension (7) Smoking: Status: Acute Reason for Visit Reason for Visit: Palpitations Hospital Course Hospital Course Please see patient's H&P for more details. Juancarlos Reddy is a 61 year old male with past medical history of paroxysmal atrial fibrillation, on diltiazem, flecainide, aspirin, chronic pain syndrome, chronic back pain, hypertension, daily alcohol use and tobacco use, as well as COPD who is presenting to emergency room with complaints of palpitations. A. fib with RVR most likely due to EtOH, dehydration, possible noncompliance with medications.? The patient will started on esmolol drip. He converted to sinus last night. Esmolol drip is discontinued. He is feeling well. He denies any active complaints. Eager to go home. We will resume his home medications.? Referral is provided to see injection machine operator after discharge. He is asked to come back to emergency room if he develops any new or similar symptoms. He verbalized understanding and agreement. Dehydration.? Resolved. EtOH.? He promised to cut down on amount of drink. However does not sound that he is ready to stop drinking entirely. Being discharged on thiamine and folic acid. He will continue follow-up with his primary care physician Tobacco abuse.? Counseling is provided.? He promised to cut down on amount of cigarettes. However it does not sound he is ready for complete smoking cessation. He verbalized understanding that smoking is not good for his health. Hypertension.? Continue home medications. COPD. Follow-up with PCP continue home medications. Tobacco cessation. Echo CONCLUSIONS ?Technically limited quality echocardiogram because of poor ?ultrasonic windows ?LV systolic function is normal with EF of 55-60% ?Normal diastolic function ?Moderate mitral annular calcification. Trace mitral ?regurgitation ?Trace tricuspid regurgitation ?No comparison studies are available Physical Exam Narrative: The patient is awake alert oriented. No acute distress. Normal mood. Skin is warm and dry. Moist mucous membranes Eyes PERRL, extraocular muscles are intact Neck no JVD Lungs clear bilaterally. No wheeze or crackles. No respiratory distress Heart S1, S2, regular rhythm and rate. Abdomen is soft, tender, bowel sounds are present Extremities trace edema, no cyanosis or calf tenderness bilaterally Neuro examination is nonfocal. Normal speech. Discharge Data Studies Completed and Pending Completed Studies During Hospitalization Category Date Time Status XR chest 1V portable [id number] Stat Exams 12/25/21 10:23 Completed CV. echo complete* [id number] Routine Ultrasound 12/26/21 00:01 Completed Radiology Impressions Chest X-Ray 12/25/21 10:23 IMPRESSION: 1. No acute cardiopulmonary finding. Laboratory Results WBC 6.6 10^3/uL (4.0-10.0) 12/26/21 03:35 RBC 4.67 10^6/uL (4.1-5.3) 12/26/21 03:35 Hgb 14.3 g/dL (11.7-16.6) 12/26/21 03:35 Hct 42.9 % (42.0-52.0) 12/26/21 03:35 MCV 91.9 fl (80-94) 12/26/21 03:35 MCH 30.6 pg (28.0-34.0) 12/26/21 03:35 MCHC 33.3 g/dL (30.0-36.0) 12/26/21 03:35 RDW 14.7 % (12.1-15.1) 12/26/21 03:35 Plt Count 223 10^3/cmm (130-400) 12/26/21 03:35 MPV 9.9 fL (7.4-10.4) 12/26/21 03:35 Neut % (Auto) 55.1 % 12/26/21 03:35 Lymph % (Auto) 26.2 % 12/26/21 03:35 [place] % (Auto) 12.6 % 12/26/21 03:35 Eos % (Auto) 3.8 % 12/26/21 03:35 Baso % (Auto) 1.1 % 12/26/21 03:35 Neut # (Auto) 3.65 10^3/uL (1.8-7.7) 12/26/21 03:35 Lymph # (Auto) 1.7 10^3/uL (0.8-4.8) 12/26/21 03:35 [place] # (Auto) 0.8 10^3/uL (0.2-0.9) 12/26/21 03:35 Eos # (Auto) 0.3 10^3/uL (0.0-0.8) 12/26/21 03:35 Baso # (Auto) 0.1 10^3/uL (0.0-0.1) 12/26/21 03:35 Nucleated RBC % (auto) 0 % 12/26/21 03:35 Nucleated RBCs # 0.0 /100WBC 12/26/21 03:35 Sodium 134 mmol/L (136-145) L 12/26/21 03:35 Potassium 3.9 mmol/L (3.5-5.1) 12/26/21 03:35 Chloride 103 mmol/L (98-107) 12/26/21 03:35 Carbon Dioxide 22 mmol/L (22-29) 12/26/21 03:35 Anion Gap 12.9 (5-19) 12/26/21 03:35 BUN 16 mg/dL (8-23) 12/26/21 03:35 Creatinine 0.7 mg/dL (0.7-1.2) 12/26/21 03:35 GFR Calculation 114.6 mL/min (90-130) 12/26/21 03:35 Glucose 99 mg/dL (65-115) 12/26/21 03:35 Calculated Osmolality 279 mOsm/kg (285-295) L 12/26/21 03:35 Calcium 7.9 mg/dL (8.5-10.5) L 12/26/21 03:35 Magnesium 2.3 mg/dL (1.7-2.3) 12/26/21 03:35 Total Bilirubin 0.2 mg/dL (0.15-1.2) 12/26/21 03:35 AST 17 U/L (0-40) 12/26/21 03:35 ALT 25 U/L (0-41) 12/26/21 03:35 Alkaline Phosphatase 68 IU/L (40-130) 12/26/21 03:35 Troponin T Baseline 15 ng/L (0-15) 12/25/21 10:37 Troponin T 120 Minute 14.77 ng/L (0-15) 12/25/21 12:34 Delta Troponin T -0.23 ABS# (0-10) L 12/25/21 12:34 Troponin T Hi Sens 6Hr 11.31 ng/L (0-15) 12/25/21 16:31 Troponin T Hi Sens 6Hr Delta -3.69 ng/L (0-12) L 12/25/21 16:31 Total Protein 5.9 g/dL (6.6-8.7) L 12/26/21 03:35 Albumin 3.6 g/dL (3.5-5.2) 12/26/21 03:35 Globulin 2.3 g/dL (1.3-4.6) 12/26/21 03:35 Triglycerides 357 mg/dL (0-150) H 12/26/21 03:35 Cholesterol 172 mg/dL (0-200) 12/26/21 03:35 LDL Cholesterol, Calc 62 mg/dL (50-129) 12/26/21 03:35 HDL Cholesterol 39 mg/dL (60-100) L 12/26/21 03:35 LDL/HDL Ratio 1.59 RATIO (0.00-3.22) 12/26/21 03:35 Cholesterol/HDL Ratio 4.41 mg/dL (1.0-5.00) 12/26/21 03:35 TSH 0.95 uIU/mL (0.27-4.20) 12/25/21 10:37 Urine Color Yellow (Yellow) 12/25/21 12:23 Urine Appearance Clear (CLEAR) 12/25/21 12:23 Urine pH 6 (5-7) 12/25/21 12:23 Ur Specific [place] 1.015 (1.005-1.030) 12/25/21 12:23 Urine Protein Neg (Negative) 12/25/21 12:23 Urine Glucose (UA) Norm (Normal) 12/25/21 12:23 Urine Ketones Negative (Negative) 12/25/21 12:23 Urine Blood Neg (Negative) 12/25/21 12:23 Urine Nitrate Negative (Negative) 12/25/21 12:23 Urine Bilirubin Neg (Negative) 12/25/21 12:23 Urine Urobilinogen Norm mg/dL (Negative) 12/25/21 12:23 Ur Leukocyte Esterase Negative (Negative) 12/25/21 12:23 Vitals Last Vital Signs Temp 97.0 F L 12/26/21 12:31 Pulse 71 12/26/21 12:31 Resp 23 H 12/26/21 12:31 BP 139/86 12/26/21 12:31 Pulse Ox 98 12/26/21 12:31 Discharge Plan Discharge Patient Disposition: Home Condition: Stable Prescriptions: New folic acid 1 mg Tablet 1 mg PO DAILY Qty: 30 0RF Thera 400 mcg Tablet 1 tab PO DAILY Qty: 30 0RF Vitamin B-1 (mononitrate) 100 mg Tablet 100 mg PO DAILY Qty: 30 0RF Continued ascorbic acid (vitamin C) 500 mg tablet 500 mg PO DAILY 0RF aspirin 325 mg tablet 325 mg PO DAILY Qty: 90 3RF lisinopril 40 mg tablet 40 mg PO DAILY 30 Days Qty: 90 3RF fluticasone propion-salmeterol [Advair Diskus] 250-50 mcg/dose blister with device 1 inh INHALATION BID PRN (Reason: copd) Qty: 60 2RF omega-3 fatty acids-fish oil 684-1,200 mg Capsule,Delayed Release(Dr/Ec) 1 cap PO DAILY 0RF lovastatin 40 mg tablet 40 mg PO DAILY 0RF flecainide 100 mg tablet 100 mg PO BID 0RF diltiazem HCl 120 mg capsule,extended release 24hr 120 mg PO DAILY 0RF garlic Tablet 2,000 mg PO DAILY 0RF Discharge Orders: Discharge Order (Routine); Ordered 12/26/21 Ordered By: Aguilar Lux Referrals: Ann-Marie Bartlett MD [Primary Care Provider] - Justino Monet M.D [Physician] - 4-7 days Patient Instructions: Alcohol Abuse, A-fib (Atrial Fibrillation) (DC), Cigarette Smoking and Your Health (GEN), Opioid Safety Activity Restrictions/Additional Instructions: Please decrease amount of alcohol and tobacco use as we discussed. Please come back to emergency room if you develop any dizziness or lightheadedness, chest pain, palpitations, shortness of breath, nausea or vomiting, fever or chills, any signs of bleeding or any other new complaints. Please follow-up with the heart doctor. Additional testing might be necessary. Additional adjustments to your medications might be necessary. Discharge Attestations Time Spent in Discharge Care*: greater than 30 min Quality Metrics Clinical Quality Measures [ No reported AMI, CVA or VTE this stay] Coding Level of Care Code Acute [facility] DC note Diagnoses Atrial fibrillation with RVR I48.91 Dehydration E86.0 COPD (chronic obstructive pulmonary disease) J41.0 COPD type: chronic bronchitis Chronic bronchitis type: simple ETOHism F10.20 Chronic pain G89.29 Hypertension I10 Hypertension type: essential hypertension Smoking F17.200
--- NOTE | 2021-12-26 15:54 | PC.NURSE ---
update called to for report of echo and update medication .. will make apointments
== END 2021-12-26 12:47 | disposition home or self-care (01) ==
LOC: ER 10:54 → ICU 16:57
PROVIDERS: Admitting Provider Internal Medicine; Emergency Provider Family Medicine; PCP Family Medicine; Visit Provider Internal Medicine
DX: I48.0 Paroxysmal atrial fibrillation (principal); E86.0 Dehydration; J41.0 Simple chronic bronchitis; F10.20 Alcohol dependence, uncomplicated; G89.29 Other chronic pain; I10 Essential (primary) hypertension; F17.210 Nicotine dependence, cigarettes, uncomplicated; J44.9 Chronic obstructive pulmonary disease, unspecified; Z79.82 Long term (current) use of aspirin; Z82.49 Family history of ischemic heart disease and other diseases of the circulatory system
CPT/HCPCS: 36415; 71045; 80053; 80061; 81003; 83735; 84443; 84484; 85025; 93005; 93306; 94640; 96365; 96366; 96372; 96375; 99285; G0378; J1650; J3490; J7030; J7040

== ENCOUNTER 2022-02-05 14:49 | Outpatient (CLI) | payer OTHER, SELFPAY ==
[2022-02-05 15:55] LABS: Anion Gap 14.9 (5-19); Blood Urea Nitrogen 8 mg/dL (8-23); Carbon Dioxide 24 mmol/L (22-29); Chloride 101 mmol/L (98-107); Glucose 87 mg/dL (65-115); NT Pro B Type Natriuretic Pept 73 pg/mL (0-125); Osmolality Calculated 280 mOsm/kg (285-295); Potassium 3.9 mmol/L (3.5-5.1); Sodium 136 mmol/L (136-145)
== END 2022-02-05 14:50 | disposition home or self-care (01) ==
LOC: LAB 14:51
PROVIDERS: PCP Family Medicine; Visit Provider Internal Medicine
DX: I10 Essential (primary) hypertension (principal); I48.0 Paroxysmal atrial fibrillation
CPT/HCPCS: 36415; 80048; 83880

== ENCOUNTER 2022-03-19 09:51 | Emergency (ER) | payer OTHER, SELFPAY ==
[2022-03-19] VITALS (18 sets, daily range): BP systolic 121–142; BP diastolic 76–108; PULSE 88–96; RESP 15; O2SAT 95–98
--- NOTE | 2022-03-19 11:13 | XR_ITS ---
WS: [id number] Portable AP upright chest, 03/19/2022 Clinical Data: chest pain Comparison: Portable chest, 12/25/2021. Findings: No nodules, masses or effusions are seen. The heart is normal. The pulmonary vascularity is not increased. No pneumonia or pneumothorax is seen. There are old left posterior lateral fourth rib sixth rib fractures. The patient's had an anterior cervical disc fusion. XR/XR chest 1V portable [id number] Impression: Negative chest.
--- NOTE | 2022-03-19 11:13 | CT_ITS ---
WS: [id number] CT HEAD NONCONTRAST HISTORY: Neuro deficits for three days, LEFT facial numbness. TECHNIQUE: Contiguous axial imaging performed through the brain in 2.5 mm imaging. Bone and soft tiss ue windows. Sagittal and coronal reformats reviewed. All CT scans at [facility] use at least one of these dose optimization techniques: automated exposure control; mA and/or kV adjustment per pa tient size (includes targeted exams where dose is matched to clinical indication); or iterative recon struction. DLP: 1178.58 mGy.cm COMPARISON: 11/04/2019 No acute intracranial hemorrhage, midline shift or mass effect. Very mild atrophy and small vessel ischemic disease. Ventricles: Normal size with no hydrocephalus. No inferior displacement of cerebellar tonsils. Paranasal sinuses: As visualized are clear. Mastoid air cells: Well pneumatized. Calvarium and scalp: Skull is intact with no soft tissue edema or swelling. CT/CT head wo con* [id number] IMPRESSION: 1. No acute intracranial hemorrhage or edema. 2. Very minimal small vessel ischemic disease.
--- NOTE | 2022-03-19 11:16 | ECG_ITS ---
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 Measurements Intervals [place] Rate: 70 P: 56 WI: 175 QRS: 45 QRSD: 102 T: 55 QT: 378 QTc: 410 Interpretive Statements SINUS RHYTHM Compared to ECG 12/25/2021 16:47:24 Atrial fibrillation no longer present Electronically Signed On 03-19-2022 17:12:34 CDT by Ania Montoya M.D. [id number]
[2022-03-19 11:50] LABS: Glucose Point of Care 105 mg/dL (70-110)
[2022-03-19 11:51] LABS: Basophils # 0.1 10^3/uL (0.0-0.1); Eosinophils % 0.6 %; Hematocrit 47.1 % (42.0-52.0); Lymphocytes # 1.2 10^3/uL (0.8-4.8); Lymphocytes % 19.7 %; Mean Corpuscular Hemoglobin 30.4 pg (28.0-34.0); Mean Corpuscular Volume 89.5 fl (80-94); Mean Platelet Volume 9.7 fL (7.4-10.4); Monocytes # 0.8 10^3/uL (0.2-0.9); Monocytes % 12.8 %; Neutrophils # 4.03 10^3/uL (1.8-7.7); Neutrophils % 65.3 %; Nucleated Red Blood Cells % 0 %; Platelet Count 233 10^3/cmm (130-400); Red Blood Count 5.26 10^6/uL (4.1-5.3); Red Cell Distribution Width 13.7 % (12.1-15.1); White Blood Count 6.2 10^3/uL (4.0-10.0)
[2022-03-19 12:28] LABS: Troponin(5th) Baseline 6 ng/L (0-15)
[2022-03-19 12:34] LABS: Alanine Aminotransferase 41 U/L (0-41); Albumin Level 4.6 g/dL (3.5-5.2); Alkaline Phosphatase 85 IU/L (40-130); Aspartate Amino Transferase 35 U/L (0-40); Blood Urea Nitrogen 14 mg/dL (8-23); Carbon Dioxide 23 mmol/L (22-29); Chloride 98 mmol/L (98-107); Globulin 2.6 g/dL (1.3-4.6); Glomerular Filtration Rate 114.6 mL/min (90-130); Glucose 99 mg/dL (65-115); NT Pro B Type Natriuretic Pept 29 pg/mL (0-125); Osmolality Calculated 279 mOsm/kg (285-295); Sodium 134 mmol/L (136-145); Total Bilirubin 0.4 mg/dL (0.15-1.2); Total Protein 7.2 g/dL (6.6-8.7)
--- NOTE | 2022-03-19 12:34 | ED_ITS ---
HPI - General Adult General: Chief complaint: General Medical Stated complaint: facial numbness Time Seen by Provider: 03/19/22 10:10 History of Present Illness: 61 year old male presents emergency department chief complaint of having left-sided facial numbness as well as intermittent left leg numbness. 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 Associated symptoms: Deny chest pain, dyspnea, headache(s), malaise, nausea, rash, palpitations or vomiting Review of Systems General: Reports: 10 or more systems reviewed and unremarkable except in HPI and below Const: Denies: fever(s), chills, fatigue or malaise Eyes: Denies: change in vision or blurry vision Card: Denies: chest pain or palpitations Resp: Denies: dyspnea or productive cough GI: Denies: abdominal pain, nausea or vomiting : Denies: flank pain Musc: Denies: extremity pain or extremity swelling Skin/Breast: Denies: rash or pruritus Neuro: Denies: headache(s) Psych: Denies: anxiety or depression Pillo/Lymph: Denies: easy bleeding All/Imm: Denies: urticaria, throat swelling or facial swelling PFSH ED PFSH: Medical History Atrial fibrillation COPD (chronic obstructive pulmonary disease) GERD (gastroesophageal reflux disease) Hyperlipidemia Hypertension Lower respiratory infection Smoking Spinal stenosis at L4-L5 level Family History Other Hypertension Myocardial infarction Stroke Social History Smoking and tobacco status: current every day smoker Physical Exam Const: COMMON NORMALS: no acute distress (Subjective numbness appears to left- sided face no obvious facial droop note), patient oriented x3 and healthy appe aring HENMT: COMMON NORMALS: normocephalic and atraumatic HEAD & SCALP: normocephalic and atraumatic Eye: COMMON NORMALS: Equal, round and reactive pupils present and EOMs intact bilaterally PUPIL: Yes Equal, round and reactive pupils present Neck/C-Spine: COMMON NORMALS: full ROM, supple and no JVD Lymph: LYMPHATIC: no lymphadenopathy noted Chest: COMMONS NORMALS: normal inspection of the chest and normal palpation of entire chest wall Resp: COMMON NORMALS: normal respiratory effort, No retractions and clear to auscultation bilaterally EFFORT & INSPECTION: Yes able to speak in complete s entences and Yes symmetric chest movement AUSCULTATION: clear to auscultation bilaterally Cardio: COMMON NORMALS: no JVD, regular rate and regular rhythm RATE: regular rate RHYTHM: regular rhythm GI: COMMON NORMALS: Normal to inspection, nondistended, normoactive bowel sounds present, Soft to palpation and non-tender INSPECTION: Yes normal to inspection PALPATION: Yes Soft to palpation : COMMON NORMALS: Yes no CVA tenderness BLADDER/KIDNEY EXAM: Yes no CVA tenderness Back/Pelvis: COMMON NORMALS: no CVA tenderness Extremity: COMMON NORMALS: normal to inspection and full ROM Neuro: COMMON NORMALS: patient oriented x3, CN's II-XII intact bilaterally, moves all extremities and no focal motor deficits Psych: COMMON NORMALS: mental status grossly normal, Normal thought process present, cooperative and normal affect THOUGHT PROCESS: Normal thought process present Skin: COMMON NORMALS: no rashes or lesions noted GENERAL SKIN EXAM: no rashes or lesions noted Course Vital Signs: Vital signs: Vital Signs Pulse Rate 96 03/19/22 10:09 Respiratory Rate 15 03/19/22 10:09 Blood Pressure 138/108 03/19/22 10:09 Pulse Oximetry 95 03/19/22 10:09 [facility] - General Adult Medical Decision Making Due to the patient's symptom condition lab work and imaging will be obtained we will continue to follow CT imaging came back unremarkable no obvious stroke was appreciated. Patient was finally somewhat hypertensive throughout his timers department I suspect this may be contributing to his reason why he is having some generalized numbness. Did advise any further follow-up his primary care doctor in 2 to 3 days which was advised to return the interim if any of his symptoms persist or worse. Lab Data : 03/19/22 11:40 03/19/22 11:40 Radiology Impressions Chest X-Ray 03/19/22 11:13 Impression: Negative chest. Head CT 03/19/22 11:13 IMPRESSION: 1. No acute intracranial hemorrhage or edema. 2. Very minimal small vessel ischemic disease. Laboratory Results WBC 6.2 10^3/uL (4.0-10.0) 03/19/22 11:40 RBC 5.26 10^6/uL (4.1-5.3) 03/19/22 11:40 Hgb 16.0 g/dL (11.7-16.6) 03/19/22 11:40 Hct 47.1 % (42.0-52.0) 03/19/22 11:40 MCV 89.5 fl (80-94) 03/19/22 11:40 MCH 30.4 pg (28.0-34.0) 03/19/22 11:40 MCHC 34.0 g/dL (30.0-36.0) 03/19/22 11:40 RDW 13.7 % (12.1-15.1) 03/19/22 11:40 Plt Count 233 10^3/cmm (130-400) 03/19/22 11:40 MPV 9.7 fL (7.4-10.4) 03/19/22 11:40 Neut % (Auto) 65.3 % 03/19/22 11:40 Lymph % (Auto) 19.7 % 03/19/22 11:40 [place] % (Auto) 12.8 % 03/19/22 11:40 Eos % (Auto) 0.6 % 03/19/22 11:40 Baso % (Auto) 1.0 % 03/19/22 11:40 Neut # (Auto) 4.03 10^3/uL (1.8-7.7) 03/19/22 11:40 Lymph # (Auto) 1.2 10^3/uL (0.8-4.8) 03/19/22 11:40 [place] # (Auto) 0.8 10^3/uL (0.2-0.9) 03/19/22 11:40 Eos # (Auto) 0.0 10^3/uL (0.0-0.8) 03/19/22 11:40 Baso # (Auto) 0.1 10^3/uL (0.0-0.1) 03/19/22 11:40 Nucleated RBC % (auto) 0 % 03/19/22 11:40 Nucleated RBCs # 0.0 /100WBC 03/19/22 11:40 Sodium 134 mmol/L (136-145) L 03/19/22 11:40 Potassium 4.3 mmol/L (3.5-5.1) 03/19/22 11:40 Chloride 98 mmol/L (98-107) 03/19/22 11:40 Carbon Dioxide 23 mmol/L (22-29) 03/19/22 11:40 Anion Gap 17.3 (5-19) 03/19/22 11:40 BUN 14 mg/dL (8-23) 03/19/22 11:40 Creatinine 0.7 mg/dL (0.7-1.2) 03/19/22 11:40 GFR Calculation 114.6 mL/min (90-130) 03/19/22 11:40 Glucose 99 mg/dL (65-115) 03/19/22 11:40 POC Glucose 105 mg/dL (70-110) 03/19/22 11:39 Calculated Osmolality 279 mOsm/kg (285-295) L 03/19/22 11:40 Calcium 9.0 mg/dL (8.5-10.5) 03/19/22 11:40 Total Bilirubin 0.4 mg/dL (0.15-1.2) 03/19/22 11:40 AST 35 U/L (0-40) 03/19/22 11:40 ALT 41 U/L (0-41) 03/19/22 11:40 Alkaline Phosphatase 85 IU/L (40-130) 03/19/22 11:40 Troponin T Baseline 6 ng/L (0-15) 03/19/22 11:40 Troponin T 120 Minute 6.25 ng/L (0-15) 03/19/22 13:28 Delta Troponin T 0.25 ABS# (0-10) 03/19/22 13:28 C-Reactive Protein 3.0 mg/L (0.0-4.9) 03/19/22 11:40 NT-Pro-B Natriuret Pep 29 pg/mL (0-125) 03/19/22 11:40 Total Protein 7.2 g/dL (6.6-8.7) 03/19/22 11:40 Albumin 4.6 g/dL (3.5-5.2) 03/19/22 11:40 Globulin 2.6 g/dL (1.3-4.6) 03/19/22 11:40 Urine Color Yellow (Yellow) 03/19/22 12:40 Urine Appearance Clear (CLEAR) 03/19/22 12:40 Urine pH 5 (5-7) 03/19/22 12:40 Ur Specific [place] 1.015 (1.005-1.030) 03/19/22 12:40 Urine Protein Neg (Negative) 03/19/22 12:40 Urine Glucose (UA) Norm (Normal) 03/19/22 12:40 Urine Ketones Negative (Negative) 03/19/22 12:40 Urine Blood Neg (Negative) 03/19/22 12:40 Urine Nitrate Negative (Negative) 03/19/22 12:40 Urine Bilirubin Neg (Negative) 03/19/22 12:40 Urine Urobilinogen Norm mg/dL (Negative) 03/19/22 12:40 Ur Leukocyte Esterase Negative (Negative) 03/19/22 12:40 EKG Data Normal sinus rhythm rate of [address] segment elevations or depressions appreciated.: Computer generated interpretation: Chest X-Ray 03/19/22 11:13 Impression: Negative chest. Head CT 03/19/22 11:13 IMPRESSION: 1. No acute intracranial hemorrhage or edema. 2. Very minimal small vessel ischemic disease. Discharge Plan Discharge Patient Disposition: Home Clinical Impression: Left facial numbness, Essential hypertension Condition: Stable Prescriptions: No Action ascorbic acid (vitamin C) 500 mg tablet 500 mg PO QAM 0RF fluticasone propion-salmeterol [Advair Diskus] 250-50 mcg/dose blister with device 1 inh INHALATION BID PRN (Reason: copd) Qty: 60 2RF fluticasone propionate [Flonase Allergy Relief] 50 mcg/actuation spray,suspension 2 spray intranasal DAILY Qty: 16 0RF Rx Instructions: administer into each nostril omega-3 fatty acids-fish oil 684-1,200 mg Capsule,Delayed Release(Dr/Ec) 1 cap PO QAM 0RF lovastatin 40 mg tablet 40 mg PO QAM 0RF flecainide 100 mg tablet 100 mg PO BID 0RF diltiazem HCl 120 mg capsule,extended release 24hr 120 mg PO QAM 0RF garlic Tablet 2,000 mg PO QAM 0RF aspirin 325 mg tablet 325 mg PO QAM 0RF Lasix 20 mg tablet 20 mg PO BID PRN (Reason: Edema) 0RF lisinopril 40 mg tablet 40 mg PO QAM 0RF Vitamin B-1 (mononitrate) 100 mg tablet 100 mg PO QAM 0RF Thera 400 mcg tablet 1 tab PO QAM 0RF Discharge Orders: Discharge ED (Routine); Ordered 03/19/22 Ordered By: Ok Rosario Referrals: Ann-Marie Bartlett MD [Primary Care Provider] - 1-3 days (For further assessment management of your blood pressure and additional symptoms.) Discharge Diet: Cardiac Discharge Activity: Increase activity as tolerated Patient Instructions: Chronic Hypertension (ED), Hypertension (ED) Activity Restrictions/Additional Instructions: Please follow-up with your primary care doctor in 2 to 3 days continue taking your high blood pressure pressure medications as prescribed please return the interim if any of her symptoms persist or worse. Coding Level of Care Code ED Vp Cardiovascular Service Line for Claire Tomas
[2022-03-19 12:37] LABS: Anion Gap 17.3 (5-19); Potassium 4.3 mmol/L (3.5-5.1)
[2022-03-19 12:51] LABS: Add Urine Microscopic? NO; Charge for UA Resulting for Rev
[2022-03-19 13:01] LABS: Specific Gravity, Urine 1.015 (1.005-1.030); Urine Appearance Clear (CLEAR); Urine Color Yellow (Yellow); pH Urine 5 (5-7)
[2022-03-19 13:02] LABS: Bilirubin Urine Neg (Negative); Blood Urine Neg (Negative); Glucose Urine UA Norm (Normal); Ketones Urine Negative (Negative); Leukocyte Esterase Urine Negative (Negative); Nitrate Urine Negative (Negative); Protein Urine Neg (Negative); Urobilinogen Urine Norm (Negative)
--- NOTE | 2022-03-19 13:13 | PC.NURSE ---
WHILE AT BEDSIDE PT IS UP IN ROOM IN NAD. PT ASKED TO GO OUT AND SMOKE INFORMED HIM THATWAS AGAINST POLICY. PT REFUSES TO WEAR MONITORING EQUIPMENT INFORMED DR. HIGGINS HE VERBALIZED UNDERSTANDING NO FURTHER ORDERS.
[2022-03-19 13:59] LABS: Troponin 5 2HR 6.25 ng/L (0-15)
[2022-03-19 14:12] LABS: Troponin 5 2HR Delta 0.25 ABS# (0-10)
== END 2022-03-19 14:42 | disposition home or self-care (01) ==
PROVIDERS: Emergency Provider Emergency Medicine; PCP Family Medicine
DX: R20.0 Anesthesia of skin (principal); I10 Essential (primary) hypertension; Z79.82 Long term (current) use of aspirin; J44.9 Chronic obstructive pulmonary disease, unspecified; E78.5 Hyperlipidemia, unspecified; F17.210 Nicotine dependence, cigarettes, uncomplicated
CPT/HCPCS: 36415; 36416; 70450; 71045; 80053; 81003; 82962; 83880; 84484; 85025; 86140; 93005; 99285